=== PATIENT | female | born 1965 | race Caucasian/White ===

== ENCOUNTER 2016-07-28 16:01 | Emergency (ER) | payer MEDICARE, BC ==
[2016-07-28 16:34] VITALS: BP 134/87
--- NOTE | 2016-07-28 16:45 | EDM.PDOC ---
ED HPI GENERAL MEDICAL PROBLEM - General Chief Complaint: Chest Pain Stated Complaint: BROKE RIBS Time Seen by Provider: 07/28/16 16:36 Source of Information: Reports: Patient, Family, RN notes reviewed History Limitations: Reports: No limitations - History of Present Illness INITIAL COMMENTS - FREE TEXT/NARRATIVE: 50-year-old female presents to emergency department a complaint of rib pain she has a known history of COPD and osteoporosis, unfortunately she had a severe coughing fit today felt some pain on the left rib cage. Denies any shortness of breath beyond baseline fevers nausea vomiting - Related Data Allergies Allergy/AdvReac Type Severity Reaction Status Date / Time azithromycin [From Zithromax] Allergy Stomach Verified 07/28/16 16:21 Upset ciprofloxacin Allergy Shortness Verified 07/28/16 16:21 of Breath Penicillins Allergy Cannot Verified 07/28/16 16:21 Remember Sulfa (Sulfonamide Allergy Shortness Verified 07/28/16 16:21 Antibiotics) of Breath EGG WHITE Allergy Cannot Uncoded 07/28/16 16:21 Remember Home Meds: Home Meds Albuterol [Ventolin HFA] 07/28/16 [History] Fluticasone/Salmeterol [Advair Diskus 500-50] 07/28/16 [History] Ipratropium/Albuterol Sulfate [Iprat-Albut 0.5-3(2.5) mg/3 ml] 07/28/16 [ History] Umeclidinium [place] [Incruse Ellipta] 07/28/16 [History] predniSONE [Prednisone] 07/28/16 [History] Past Medical History Respiratory History: Reports: Asthma, COPD, Other (see below) Other Respiratory History: CARCOIDOSIS Musculoskeletal History: Reports: Fracture Social & Family History - Tobacco Use Smoking Status *Q: Current Some Day Smoker Years of Tobacco use: 30 Packs/Tins Daily: 0.5 ED ROS GENERAL - Review of Systems Review Of Systems: See Below Constitutional: Denies: fever, chills HEENT: Reports: No symptoms Respiratory: Reports: Shortness of Breath, Cough. Denies: Sputum Cardiovascular: Reports: Chest pain (chest wall pain) GI/Abdominal: Reports: No symptoms : Reports: no symptoms ED EXAM, GENERAL - Physical Exam Exam: See Below Exam Limited By: No limitations General Appearance: alert, WD/WN, no apparent distress Respiratory/Chest: no respiratory distress, lungs clear, normal breath sounds, no accessory muscle use, other (tenderness to palpation posterior aspect of the thoracic cage left side T2 -t10 region) Course - Vital Signs Last Recorded V/S: Last Vital Signs Temp 98.8 F 07/28/16 16:32 Pulse 103 H 07/28/16 16:32 Resp 14 07/28/16 16:32 BP 134/87 07/28/16 16:32 Pulse Ox 94 L 07/28/16 16:32 - Orders/Labs/Meds Orders: Active Orders 24 hr Category Date Time Status Chest 2V [CR] Urgent Exams 07/28/16 16:42 Taken Departure - Departure Time of Disposition: 17:25 Disposition: Home, Self-Care 01 Condition: good Clinical Impression: Chest wall pain Forms: ED Department Discharge Additional Instructions: use Tylenol No. 3 as deeper pain control, Please followup with your primary care provider in 3-5 days if not better, please call return to the emergency department with worsening of symptoms. - My Orders Last 24 Hours: My Active Orders 07/28/16 16:42 Chest 2V [CR] Urgent - Assessment/Plan Last 24 Hours: My Active Orders 07/28/16 16:42 Chest 2V [CR] Urgent Plan: Assessment Acuity = acute Site and laterality = chest wall pain Etiology = suspicious for rib injury Manifestations = none Location of injury = home Lab values = chest x-ray I did review films myself I cannot appreciate any acute process, the official read from radiology is pending Plan I did review x-ray results are returned for Tylenol #3 for pain control follow up with primary care 3-5 days if not better Patient was in agreement with the plan all questions were answered, they were instructed to return to the emergency department or call for worsening symptoms. This note was dictated using [employer] voice recognition software please call with any questions.
--- NOTE | 2016-07-30 08:52 | CR ---
Chest 2V HISTORY: rib pain left side COMPARISON: 07/28/2010 FINDINGS: Lungs appear clear and normally aerated. Cardiomediastinal silhouette is within normal limits. No va scular redistribution or pleural fluid can be seen. Bony structures and soft tissues are unremarkabl e. IMPRESSION: No acute chest abnormality identified.
== END 2016-07-28 17:48 | disposition home or self-care (01) ==
LOC: JP.ED 16:01
DX: R07.89 Other chest pain (principal); J45.909 Unspecified asthma, uncomplicated; J44.9 Chronic obstructive pulmonary disease, unspecified; F17.210 Nicotine dependence, cigarettes, uncomplicated; Z79.899 Other long term (current) drug therapy; Z88.0 Allergy status to penicillin; Z88.1 Allergy status to other antibiotic agents; Z88.2 Allergy status to sulfonamides; Z91.012 Allergy to eggs
CPT/HCPCS: 71020; 71020-26; 99283; 99284

== ENCOUNTER 2018-06-05 01:42 | Inpatient (IN) | payer MEDICARE, BC ==
[2018-06-05] MEDS ORDERED: Albuterol/Ipratropium 3.0-0.5 MG/3 ML Neb Soln NEB ONE (02:03)
[2018-06-05] MEDS ORDERED: methylPREDNISolone Sodium Succinate 125 MG/2 ML SDV IVPUSH ONE (02:03)
[2018-06-05] MEDS ORDERED: cefTRIAXone 1 GM in Sodium Chloride 0.9% 50 ML IV ONE (02:04)
--- NOTE | 2018-06-05 02:10 | EDM.PDOC ---
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 She felt an exacerbation starting several days ago, started doxycycline 2 days ago and a prednisone taper starting at 40 mg daily. Despite the medicine she doesn't feel she is improving. No fevers or chills. No productive cough. She is still smoking. Chest hurts from coughing Onset: Gradual Duration: Day(s): (Worsening for several days) Associated Symptoms: Reports: Chest Pain (History of fractured ribs), Cough, Shortness of Breath. Denies: Fever/Chills, Nausea/Vomiting breathing Pain Score (Numeric/FACES): 8 - Related Data Allergies Allergy/AdvReac Type Severity Reaction Status Date / Time azithromycin [From Zithromax] Allergy Stomach Verified 06/05/18 01:48 Upset ciprofloxacin Allergy Shortness Verified 06/05/18 01:48 of Breath Penicillins Allergy Cannot Verified 06/05/18 01:48 Remember Sulfa (Sulfonamide Allergy Shortness Verified 06/05/18 01:48 Antibiotics) of Breath EGG WHITE Allergy Cannot Uncoded 07/28/16 16:21 Remember Home Meds: Home Meds Albuterol [Ventolin HFA] 2 puff INH Q4H PRN 07/28/16 [History] Fluticasone/Salmeterol [Advair Diskus 500-50] 1 puff INH BID 07/28/16 [History] Umeclidinium [place] [Incruse Ellipta*] 1 puff INH DAILY 07/28/16 [History] predniSONE [Prednisone] 40 mg PO DAILY 07/28/16 [History] Albuterol [Proventil Neb Soln] 3 ml INH Q4H PRN 06/05/18 [History] Albuterol/Ipratropium [DuoNeb 3.0-0.5 MG/3 ML] 1 dose INH Q4H PRN 06/05/18 [ History] Aspirin [[place] Aspirin EC] 1 tab PO DAILY 06/05/18 [History] Cholecalciferol (Vitamin D3) [Vitamin D3] 1,000 units PO BID 06/05/18 [History] Doxycycline Monohydrate 1 tab PO BID 06/05/18 [History] Guaifenesin/Pseudoephedrne HCl [Mucinex D ER Tablet] 1 tab PO ASDIRECTED [History] Multivitamin [Daily Multiple Vitamin] 1 tab PO DAILY 06/05/18 [History] Ranitidine HCl [Zantac] 1 tab PO BID 06/05/18 [History] Past Medical History - Past Health History Medical/Surgical History: Denies Medical/Surgical History Respiratory History: Reports: Asthma, COPD, Sleep Apnea, Other (See Below) Other Respiratory History: CARCOIDOSIS Gastrointestinal History: Reports: GERD Genitourinary History: Reports: Renal Calculus [employer] AND [employer]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: Musculoskeletal History: Reports: Fracture, Osteoarthritis, Osteoporosis Neurological History: Reports: Neuropathy, Peripheral Psychiatric History: Reports: Depression - Past Surgical History HEENT Surgical History: Reports: Adenoidectomy, Myringotomy w Tube(s), Tonsillectomy GI Surgical History: Reports: Cholecystectomy Female Surgical History: Reports: Lithotripsy/ESWL Social & Family History - Tobacco Use Smoking Status *Q: Current Every Day Smoker Years of Tobacco use: 35 Packs/Tins Daily: 0.5 - Caffeine Use Caffeine Use: Reports: Soda - Recreational Drug Use Recreational Drug Use: No ED ROS GENERAL - Review of Systems Review Of Systems: See Below Constitutional: Denies: Fever, Chills HEENT: Denies: Rhinitis, Throat Pain Respiratory: Reports: Shortness of Breath, Cough. Denies: Sputum Cardiovascular: Reports: Chest Pain. Denies: Palpitations GI/Abdominal: Denies: Abdominal Pain, Nausea, Vomiting : Reports: No Symptoms Skin: Reports: Other (Hyperemia, telangectasias of the face likely from chronic steroid use) Neurological: Denies: Headache Psychiatric: Reports: Anxiety ED EXAM, GENERAL - Physical Exam Exam: See Below Exam Limited By: No Limitations General Appearance: Alert, Mild Distress Head: Atraumatic Respiratory/Chest: Respiratory Distress, Decreased Breath Sounds, Wheezing Cardiovascular: Regular Rate, Rhythm, Tachycardia GI/Abdominal: Non-Tender Neurological: Alert, Oriented Psychiatric: Anxious Course - Vital Signs Last Recorded V/S: Last Vital Signs Temp 99.0 F 06/05/18 03:37 Pulse 122 H 06/05/18 03:37 Resp 22 H 06/05/18 03:37 BP 122/88 06/05/18 03:37 Pulse Ox 94 L 06/05/18 04:05 - Orders/Labs/Meds Orders: Active Orders 24 hr Category Date Time Status RT Aerosol Therapy [RC] ASDIRECTED Care 06/05/18 02:04 Active Medication Orders Acetaminophen (Tylenol) 650 mg PO Q4H PRN PRN Reason: Pain (Mild 1-3)/fever Last Admin: 06/05/18 04:04 Dose: 650 mg Albuterol (Proventil Neb Soln) 2.5 mg NEB Q1H PRN PRN Reason: Shortness Of Breath/wheezing Last Admin: 06/05/18 04:53 Dose: 2.5 mg Admin: 06/05/18 03:43 Dose: 2.5 mg Albuterol/Ipratropium (Duoneb 3.0-0.5 Mg/3 Ml) 3 ml INH Q4H PRN PRN Reason: Shortness of Breath Last Admin: 06/05/18 05:57 Dose: 3 ml Aspirin (Halfprin) 81 mg PO DAILY LARRY Bisacodyl (Dulcolax) 5 mg PO DAILY PRN PRN Reason: Constipation Diphenhydramine HCl (Benadryl) 25 mg PO BEDTIME PRN PRN Reason: Insomnia Last Admin: 06/05/18 04:04 Dose: 25 mg Docusate Sodium (Colace) 100 mg PO BID PRN PRN Reason: Constipation Enoxaparin Sodium (Lovenox) 40 mg SUBCUT DAILY [facility], [facility]1983 Guaifenesin/Codeine Phosphate (Robitussin Ac) 10 ml PO Q4H PRN PRN Reason: Cough Ceftriaxone Sodium 1 gm/ (Sodium Chloride) 50 mls @ 100 mls/hr IV Q24H LARRY Sodium Chloride (Normal Saline) 1,000 mls @ 125 mls/hr IV ASDIRECTED [facility], [facility]–1983 Last Admin: 06/05/18 03:42 Dose: 125 mls/hr Insulin Human Lispro (Humalog) 0 unit SUBCUT QIDACANDBED FORMERLY [facility], 1928–1983; Protocol Lorazepam (Ativan) 1 mg IV Q6H PRN PRN Reason: Nausea/Vomiting Last Admin: 06/05/18 06:03 Dose: 1 mg Melatonin (Melatonin) 6 mg PO BEDTIME PRN PRN Reason: Insomnia Methylprednisolone Sodium Succinate (Solu-Medrol) 62.5 mg IVPUSH Q6H LARRY Nicotine (Habitrol) 14 mg TRDERM DAILY LARRY Non-Formulary Medication (Umeclidinium [place] [Incruse Ellipta*]) 1 puff INH DAILY LARRY Ondansetron HCl (Zofran Odt) 4 mg PO Q6H PRN PRN Reason: Nausea able to take PO Oxycodone HCl (Oxycodone) 5 mg PO Q4H PRN PRN Reason: Pain (moderate 4-6) Pantoprazole Sodium (Protonix Iv) 40 mg IVPUSH DAILY LARRY Temazepam (Restoril) 15 mg PO BEDTIME PRN PRN Reason: Sleep Labs: Laboratory Tests 06/05/18 06/05/18 06/05/18 Range/Units 02:10 02:25 02:25 WBC 15.2 H (4.5-11.0) K/uL RBC 4.72 (3.30-5.50) M/uL Hgb 14.9 (12.0-15.0) g/dL Hct 45.7 (36.0-48.0) % MCV 97 (80-98) fL MCH 32 H (27-31) pg MCHC 33 (32-36) % Plt Count 382 (150-400) K/uL Neut % (Auto) 76 H (36-66) % Lymph % (Auto) 11 L (24-44) % [place] % (Auto) 13 H (2-6) % Eos % (Auto) 0 L (2-4) % Baso % (Auto) 0 (0-1) % Puncture Site L radial ABG pH 7.427 (7.350-7.450) ABG pCO2 34.5 L (35.0-42.0) mmHg ABG pO2 68.9 L (75.0-100.0) mmHg ABG HCO3 22.3 (22.0-26.0) mmol/L ABG Total CO2 19.3 L (21.0-25.0) mmol/L ABG O2 Saturation 92.9 L (95.0-98.0) % ABG O2 Content 19.3 (15.0-23.0) %vol ABG Base Excess -0.9 mm/L ABG Hemoglobin 15.0 (12.0-16.0) g/dL ABG Oxyhemoglobin 91.7 % ABG Carboxyhemoglobin 0.5 (0.0-1.6) % ABG Methemoglobin 0.8 % Harpreet Test Ok O2 Delivery Device Room air Oxygen Flow Rate L Sodium 141 (140-148) mmol/L Potassium 3.6 (3.6-5.2) mmol/L Chloride 102 (100-108) mmol/L Carbon Dioxide 25 (21-32) mmol/L Anion Gap 14.0 (5.0-14.0) mmol/L BUN 13 (7-18) mg/dL Creatinine 0.8 (0.6-1.0) mg/dL Est Cr Clr Drug Dosing 72.34 mL/min Estimated GFR (MDRD) > 60 (>60) Glucose 150 H (74-106) mg/dL Calcium 9.4 (8.5-10.1) mg/dL Meds: Medications Generic Name Dose Route Start Last Admin Trade Name Freq PRN Reason Stop Dose Admin Acetaminophen 650 mg 06/05/18 03:27 06/05/18 04:04 Tylenol PO 650 mg Q4H PRN Administration Pain (Mild 1-3)/fever Albuterol 2.5 mg 06/05/18 03:27 06/05/18 04:53 Proventil Neb Soln NEB 2.5 mg Q1H PRN Administration Shortness Of Breath/wheezing Albuterol/Ipratropium 3 ml 06/05/18 03:27 06/05/18 05:57 Duoneb 3.0-0.5 Mg/3 Ml INH 3 ml Q4H PRN Administration Shortness of Breath Aspirin 81 mg 06/05/18 09:00 Halfprin PO DAILY LARRY Bisacodyl 5 mg 06/05/18 03:27 Dulcolax PO DAILY PRN Constipation Diphenhydramine HCl 25 mg 06/05/18 03:27 06/05/18 04:04 Benadryl PO 25 mg BEDTIME PRN Administration Insomnia Docusate Sodium 100 mg 06/05/18 03:27 Colace PO BID PRN Constipation Enoxaparin Sodium 40 mg 06/05/18 09:00 Lovenox SUBCUT DAILY LARRY Guaifenesin/Codeine Phosphate 10 ml 06/05/18 03:27 Robitussin Ac PO Q4H PRN Cough Ceftriaxone Sodium 1 gm/ 50 mls @ 100 mls/hr 06/05/18 21:00 Sodium Chloride IV Q24H LARRY Sodium Chloride 1,000 mls @ 125 mls/hr 06/05/18 03:27 06/05/18 03:42 Normal Saline IV 125 mls/hr ASDIRECTED LARRY Administration Insulin Human Lispro 0 unit 06/05/18 07:00 Humalog SUBCUT QIDACANDBED [facility], 1928–1983 Protocol Lorazepam 1 mg 06/05/18 03:27 06/05/18 06:03 Ativan IV 1 mg Q6H PRN Administration Nausea/Vomiting Melatonin 6 mg 06/05/18 03:27 Melatonin PO BEDTIME PRN Insomnia Methylprednisolone Sodium Succinate 62.5 mg 06/05/18 08:00 Solu-Medrol IVPUSH Q6H [facility] Nicotine 14 mg 06/05/18 09:00 Habitrol TRDERM DAILY [facility], [facility]1983 Non-Formulary Medication 1 puff 06/05/18 09:00 Umeclidinium [place] [Incruse Ellipta*] INH DAILY [facility]1983 Ondansetron HCl 4 mg 06/05/18 03:27 Zofran Odt PO Q6H PRN Nausea able to take PO Oxycodone HCl 5 mg 06/05/18 03:27 Oxycodone PO Q4H PRN Pain (moderate 4-6) Pantoprazole Sodium 40 mg 06/05/18 09:00 Protonix Iv IVPUSH DAILY [facility]1983 Temazepam 15 mg 06/05/18 03:27 Restoril PO BEDTIME PRN Sleep Discontinued Medications Generic Name Dose Route Start Last Admin Trade Name Freq PRN Reason Stop Dose Admin Albuterol 2.5 mg 06/05/18 02:41 06/05/18 02:53 Proventil Neb Soln NEB 06/05/18 02:42 2.5 mg ONETIME ONE Administration Albuterol/Ipratropium 3 ml 06/05/18 02:03 06/05/18 02:14 Duoneb 3.0-0.5 Mg/3 Ml NEB 06/05/18 02:04 3 ml ONETIME ONE Administration Ceftriaxone Sodium 1 gm/ 50 mls @ 100 mls/hr 06/05/18 02:04 06/05/18 02:23 Sodium Chloride IV 06/05/18 02:33 100 mls/hr ONETIME ONE Administration Methylprednisolone Sodium Succinate 125 mg 06/05/18 02:03 06/05/18 02:19 Solu-Medrol IVPUSH 06/05/18 02:04 125 mg ONETIME ONE Administration - Re-Assessments/Exams Free Text/Narrative Re-Assessment/Exam: 06/05/18 02:09 An IV was started, patient will be given 125 mg of IV Solu-Medrol, 1 g of IV Rocephin and also a DuoNeb. Portable chest x-ray will be obtained. CBC and BMP obtained as well as ABGs. 06/05/18 02:13 Chest x-ray showed hyperinflation but no infiltrate. Patient had slight improvement objectively after the DuoNeb, her O2 sats was still hovering between 89 and 91 so she was given 2 L of nasal cannula O2. Danielle Oconnor of the hospitalist service was asked to see the patient for admission. Departure - Departure Time of Disposition: 02:49 Disposition: Admitted As Inpatient 64 Condition: Fair Clinical Impression: COPD exacerbation, Hypoxemia - Discharge Information - My Orders Last 24 Hours: My Active Orders 06/05/18 02:04 RT Aerosol Therapy [RC] ASDIRECTED - Assessment/Plan Last 24 Hours: My Active Orders 06/05/18 02:04 RT Aerosol Therapy [RC] ASDIRECTED
--- NOTE | 2018-06-05 02:35 | CRLCR ---
HISTORY: Shortness of breath COMPARISON: 07/28/2016 FINDINGS: A portable erect AP view of the chest was obtained at 0204 hours. The lungs remain clear. No focal or diffuse infiltrates are present. The heart remains normal in size. The mediastinum is normal in appearance. Again seen are old, well-healed fractures of the posterior-lateral left 6th through 8th ribs. IMPRESSION: No active disease seen in the chest. Dictated by Parvez Crane MD @ Jun 05 2018 2:32AM Signed by Dr. Parvez Crane @ Jun 05 2018 2:34AM
[2018-06-05] MEDS ORDERED: Albuterol 0.083% 2.5 MG/3 ML Neb Soln NEB ONE (02:41)
--- NOTE | 2018-06-05 03:14 | PCM.HP ---
H&P History of Present Illness - General Date of Service: 06/05/18 Admit Problem/Dx: Admission Diagnosis/Problem Admission Diagnosis/Problem COPD, Moderate chronic obstructive pulmonary disease Source of Information: Patient, Family (, Alfa) History Limitations: Reports: No Limitations - History of Present Illness Initial Comments - Free Text/Narative: 52-year-old female with chronic obstructive lung disease, has a standing order from her patient access associate to increase prednisone and doxycycline for COPD flare ups. She felt an exacerbation starting several days ago, started doxycycline 2 days ago and a prednisone taper starting at 40 mg daily. Despite the medicine she doesn't feel she is improving. No fevers or chills. No productive cough. She is still smoking. Chest hurts from coughing In ER 02:09 An IV was started, patient will be given 125 mg of IV Solu-Medrol, 1 g of IV Rocephin and also a DuoNeb. Portable chest x-ray will be obtained. CBC and BMP obtained as well as ABGs. 06/05/18 02:13 Chest x-ray showed hyperinflation but no infiltrate. Patient had slight improvement objectively after the DuoNeb, her O2 sats was still hovering between 89 and 91 so she was given 2 L of nasal cannula O2. Onset of Symptoms: Reports: Gradual Symptom Onset Date: 06/01/18 Duration of Symptoms: Reports: Chronic, Getting Worse Location: Reports: Chest (chronic COPD, with worsen shortness of breath), Generalized Quality: Reports: Same as Previous Episode Improves with: Reports: Medication Worsens with: Reports: None Context: Reports: Sick Contact (Grandson and with respiratory illness) Associated Symptoms: Reports: Chest Pain, Cough, Fever/Chills, Loss of Appetite , Nausea/Vomiting, Shortness of Breath breathing Pain Score (Numeric/FACES): 8 - Related Data Allergies/Adverse Reactions: Allergies Allergy/AdvReac Type Severity Reaction Status Date / Time azithromycin [From Zithromax] Allergy Stomach Verified 06/05/18 01:48 Upset ciprofloxacin Allergy Shortness Verified 06/05/18 01:48 of Breath Penicillins Allergy Cannot Verified 06/05/18 01:48 Remember Sulfa (Sulfonamide Allergy Shortness Verified 06/05/18 01:48 Antibiotics) of Breath EGG WHITE Allergy Cannot Uncoded 07/28/16 16:21 Remember Home Medications: Home Meds Albuterol [Ventolin HFA] 2 puff INH Q4H PRN 07/28/16 [History] Fluticasone/Salmeterol [Advair Diskus 500-50] 1 puff INH BID 07/28/16 [History] Umeclidinium [place] [Incruse Ellipta*] 1 puff INH DAILY 07/28/16 [History] predniSONE [Prednisone] 40 mg PO DAILY 07/28/16 [History] Albuterol [Proventil Neb Soln] 3 ml INH Q4H PRN 06/05/18 [History] Albuterol/Ipratropium [DuoNeb 3.0-0.5 MG/3 ML] 1 dose INH Q4H PRN 06/05/18 [ History] Aspirin [[place]orden Aspirin EC] 1 tab PO DAILY 06/05/18 [History] Cholecalciferol (Vitamin D3) [Vitamin D3] 1,000 units PO BID 06/05/18 [History] Doxycycline Monohydrate 1 tab PO BID 06/05/18 [History] Guaifenesin/Pseudoephedrne HCl [Mucinex D ER Tablet] 1 tab PO ASDIRECTED [History] Multivitamin [Daily Multiple Vitamin] 1 tab PO DAILY 06/05/18 [History] Ranitidine HCl [Zantac] 1 tab PO BID 06/05/18 [History] Past Medical History - Past Health History Medical/Surgical History: Denies Medical/Surgical History Respiratory History: Reports: Asthma, COPD, Sleep Apnea, Other (See Below) Other Respiratory History: CARCOIDOSIS Gastrointestinal History: Reports: GERD Genitourinary History: Reports: Renal Calculus [employer]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: Musculoskeletal History: Reports: Fracture, Osteoarthritis, Osteoporosis Neurological History: Reports: Neuropathy, Peripheral Psychiatric History: Reports: Depression - Past Surgical History HEENT Surgical History: Reports: Adenoidectomy, Myringotomy w Tube(s), Tonsillectomy GI Surgical History: Reports: Cholecystectomy Female Surgical History: Reports: Lithotripsy/ESWL Social & Family History - Tobacco Use Smoking Status *Q: Current Every Day Smoker Years of Tobacco use: 35 Packs/Tins Daily: 0.5 - Caffeine Use Caffeine Use: Reports: Soda - Recreational Drug Use Recreational Drug Use: No H&P Review of Systems - Review of Systems: Review Of Systems: See Below General: Reports: Fever, Chills, Malaise, Fatigue, Decreased Appetite HEENT: Reports: No Symptoms Pulmonary: Reports: Shortness of Breath, Wheezing, Pleuritic Chest Pain, Cough, Sputum Cardiovascular: Reports: Dyspnea on Exertion, Edema (lower leg) Gastrointestinal: Reports: Distension (chronic), Nausea Genitourinary: Reports: No Symptoms, Incontinence ("leaky bladder") Musculoskeletal: Reports: Other (painful hands, feet, legs.) Skin: Reports: Dryness Psychiatric: Reports: No Symptoms Neurological: Reports: No Symptoms Hematologic/Lymphatic: Reports: No Symptoms Immunologic: Reports: Anaphylaxis (multi medication allergry) Exam - Exam Exam: See Below - Vital Signs Vital Signs: Last Vital Signs Temp 36.6 C 06/05/18 01:48 Pulse 130 H 06/05/18 01:48 Resp 24 H 06/05/18 02:26 BP 158/88 H 06/05/18 02:26 Pulse Ox 93 L 06/05/18 02:26 Weight: 68.039 kg - Exam Quality Assessment: Supplemental Oxygen, DVT Prophylaxis General: Alert, Oriented, Cooperative, Mild Distress HEENT: PERRLA, Hearing Intact, Mucosa Moist & [place], Nares Patent, Normal Nasal Septum, Posterior Pharynx Clear, Conjunctiva Clear, EOMI, EACs Clear, TMs Clear Neck: Supple, Trachea Midline Lungs: Decreased Breath Sounds (bilateral), Crackles (bilateral), Wheezing ( bilateral) Cardiovascular: Regular Rate, Regular Rhythm GI/Abdominal Exam: Normal Bowel Sounds, Distended (chronic per patient) (Female) Exam: Deferred Rectal (Female) Exam: Deferred Back Exam: Normal Inspection, Full Range of Motion Extremities: Normal Range of Motion Skin: Warm, Dry, Intact Neurological: Reflexes Equal Bilateral, Strength Equal Bilateral, Normal Speech , Normal Tone Neuro Extensive - Mental Status: Alert, Oriented x3, Normal Mood/Affect, Normal Cognition Psychiatric: Alert, Normal Affect, Normal Mood - Patient Data Lab Results Last 24 hrs: Laboratory Results - last 24 hr 06/05/18 06/05/18 06/05/18 Range/Units 02:10 02:25 02:25 WBC 15.2 H (4.5-11.0) K/uL RBC 4.72 (3.30-5.50) M/uL Hgb 14.9 (12.0-15.0) g/dL Hct 45.7 (36.0-48.0) % MCV 97 (80-98) fL MCH 32 H (27-31) pg MCHC 33 (32-36) % Plt Count 382 (150-400) K/uL Neut % (Auto) 76 H (36-66) % Lymph % (Auto) 11 L (24-44) % [place] % (Auto) 13 H (2-6) % Eos % (Auto) 0 L (2-4) % Baso % (Auto) 0 (0-1) % Puncture Site L radial ABG pH 7.427 (7.350-7.450) ABG pCO2 34.5 L (35.0-42.0) mmHg ABG pO2 68.9 L (75.0-100.0) mmHg ABG HCO3 22.3 (22.0-26.0) mmol/L ABG Total CO2 19.3 L (21.0-25.0) mmol/L ABG O2 Saturation 92.9 L (95.0-98.0) % ABG O2 Content 19.3 (15.0-23.0) %vol ABG Base Excess -0.9 mm/L ABG Hemoglobin 15.0 (12.0-16.0) g/dL ABG Oxyhemoglobin 91.7 % ABG Carboxyhemoglobin 0.5 (0.0-1.6) % ABG Methemoglobin 0.8 % Harpreet Test Ok O2 Delivery Device Room air Oxygen Flow Rate L Sodium 141 (140-148) mmol/L Potassium 3.6 (3.6-5.2) mmol/L Chloride 102 (100-108) mmol/L Carbon Dioxide 25 (21-32) mmol/L Anion Gap 14.0 (5.0-14.0) mmol/L BUN 13 (7-18) mg/dL Creatinine 0.8 (0.6-1.0) mg/dL Est Cr Clr Drug Dosing 72.34 mL/min Estimated GFR (MDRD) > 60 (>60) Glucose 150 H (74-106) mg/dL Calcium 9.4 (8.5-10.1) mg/dL Result Diagrams: 06/05/18 02:25 06/05/18 02:25 - Problem List (1) COPD exacerbation SNOMED Code(s): 863515559 ICD Code: J44.1 - CHRONIC OBSTRUCTIVE PULMONARY DISEASE W (ACUTE) EXACERBATION Status: Acute Priority: High Current Visit: Yes (2) Tobacco use SNOMED Code(s): 594113302 ICD Code: Z72.0 - TOBACCO USE Status: Acute Priority: High Current Visit: Yes Problem List Initiated/Reviewed/Updated: Yes Orders Last 24hrs: Active Orders 24 hr Category Date Time Status Patient Status Manage Transfer [TRANSFER] Routine ADT 06/05/18 02:35 Active RT Aerosol Therapy [RC] ASDIRECTED Care 06/05/18 02:04 Active RT Aerosol Therapy [RC] ASDIRECTED Care 06/05/18 02:41 Active Resuscitation Status Routine Resus Stat 06/05/18 02:55 Ordered Assessment/Plan Comment:: ASSESSMENT / PLAN -This is 52-year-old present to ER with worsen of shortness of breath this evening. but has been sick with respiratory illness since Saturday. and Grandson are sick with respiratory illness. She has standing orders from Dr. Reyna, Pulmonology, [place], [place]. to start Doxy 100mg po bid and Prednisone 40mg with worsen shortness of breath, has been taking medications for 2 days with out improvement. In emergency room she was noted to have shortness of breath, oxygen saturation at 89% to 91% on room air, she was started on oxygen and given nebulizer, oxygen saturations improved to 90%. labs, chest x-ray, EKG, no infiltrates Medications : albuterol neb, duo neb, Rocephin 1 gram IV, Solu-Medrol 125 mg IV COPD exacerbation -Admit to [address] [place] [address] for further monitoring -IV Fluids for rehydration NS at 125 mL per hour -IV Antibiotic: Rocephin 1 g IV every 24 hours -IV Solu-Medrol 125 mg given in ER, order 6.25 mg IV every 6 hrs -albuterol nebulizer every 1 hours as needed for wheezing and cough -Duo neb ; schedule nebulize every 4 hours -oxygen per nasal cannula to keep oxygen sats greater than 92% -Advise to notify nurses of any chest pain or other symptoms Tobacco Use -Nicotine patch 14 mcg daily Maintenance issues -Orders home meds: home meds order -Nutrition: regular diet -Mar catheter not indicated at this time -DVT: Lovenox 40 mg subcut -PPI: IV Protonix 40mg daily CODE STATUS: DNR/DNI, will use Bipap Admission status: Admit to [address] [place] [address] Admission justification. This patient will be admitted for inpatient services and is medically appropriate meeting medical necessity for inpatient admission as outlined in my documentation. I reasonably expect the patient will require inpatient services that span. Time over 2 midnights. I reasonably expect this patient to be discharged or transferred within 96 hours after admission to the critical [facility]. Disposition: home Primary care provider: Dr. Mullen Hospitalist: Dr. Garnett
[2018-06-05] MEDS ORDERED: Temazepam 15 MG Cap PO PRN (03:27)
[2018-06-05] MEDS ORDERED: LORazepam 2 MG/ML SDV IV PRN (03:27)
[2018-06-05] MEDS ORDERED: Ondansetron 4 MG Tab.DIS PO PRN (03:27)
[2018-06-05] MEDS ORDERED: Bisacodyl 5 MG Tab PO PRN (03:27)
[2018-06-05] MEDS ORDERED: oxyCODONE 5 MG Tab PO PRN (03:27)
[2018-06-05] MEDS ORDERED: Melatonin 3 MG Tab PO PRN (03:27)
[2018-06-05] MEDS: Sodium Chloride 0.9% 1,000 ML IV SCH ×3 (03:42→19:36)
[2018-06-05] MEDS: Albuterol 0.083% 2.5 MG/3 ML Neb Soln NEB PRN ×3 (03:43→16:23)
[2018-06-05] MEDS: diphenhydrAMINE 25 MG Cap PO PRN ×2 (04:04→21:32)
[2018-06-05] MEDS: Acetaminophen 325 MG Tab PO PRN ×2 (04:04→17:04)
[2018-06-05] MEDS: Albuterol/Ipratropium 3.0-0.5 MG/3 ML Neb Soln INH PRN ×4 (05:57→14:18)
[2018-06-05] MEDS: Insulin Lispro 100 Unit/ML 3 ML KwikPen SUBCUT SCH ×4 (08:04→21:03)
[2018-06-05] MEDS: methylPREDNISolone Sodium Succinate 125 MG/2 ML SDV IVPUSH SCH ×3 (08:15→20:58)
[2018-06-05] MEDS: Pantoprazole 40 MG Tab.CR PO SCH (08:16)
[2018-06-05] MEDS: Aspirin 81 MG Tab.EC PO SCH (08:16)
[2018-06-05] MEDS: Glycopyrrolate 15.6 MCG Cap.W.Dev Kit of 6 IH SCH ×2 (08:17→21:03)
[2018-06-05] MEDS: Nicotine 14 MG/24 Hr Patch TRDERM SCH (08:17)
[2018-06-05] MEDS: Enoxaparin 40 MG/0.4 ML Syringe SUBCUT SCH (08:17)
[2018-06-05] MEDS ORDERED: Non-Formulary Medication 1 Each (Umeclidinium Bromide [Incruse Ellipta*] 1 PUFF) INH SCH (09:00)
[2018-06-05] MEDS ORDERED: Pantoprazole 40 MG Vial IVPUSH SCH (09:00)
[2018-06-05] MEDS: Codeine/guaiFENesin 100mg-10 MG/5 ML Syrup 10 ML Cup PO PRN (09:20)
[2018-06-05] MEDS: LORazepam 2 MG/ML SDV IV PRN ×3 (09:49→18:25)
[2018-06-05] MEDS ORDERED: Nicotine Polacrilex 2 MG Gum CHEW PRN (15:30)
--- NOTE | 2018-06-05 15:39 | PCM.PN ---
- General Info Date of Service: 06/05/18 Subjective Update: Ms. Ybarra is a 52-year-old woman who was admitted through the emergency department early this morning with acute hypoxia secondary to COPD exacerbation and underlying bronchitis. She developed upper respiratory tract infection over the past few days and became progressively more short of breath. Found to be hypoxic on initial evaluation. Chest x-ray shows no obvious infiltrate, white blood cell count was moderately elevated. Thus far she has experienced only modest improvement in symptoms, with persistent shortness of breath and cough. Functional Status: Reports: Tolerating Diet, Urinating - Review of Systems General: Reports: Weakness. Denies: Fever, Chills Pulmonary: Reports: Shortness of Breath, Cough, Sputum, Wheezing. Denies: Pleuritic Chest Pain, Hemoptysis Cardiovascular: Reports: Dyspnea on Exertion. Denies: Chest Pain, Palpitations , Orthopnea, PND, Edema, Lightheadedness Gastrointestinal: Reports: No Symptoms - Patient Data Vitals - Most Recent: Last Vital Signs Temp 98.3 F 06/05/18 15:00 Pulse 123 H 06/05/18 15:00 Resp 24 H 06/05/18 15:00 BP 145/67 H 06/05/18 15:00 Pulse Ox 90 L 06/05/18 15:00 Weight - Most Recent: 173 lb 6.403 oz I&O - Last 24 Hours: Intake & Output 06/05/18 06/05/18 06/05/18 06:59 14:59 22:59 Intake Total 282 Output Total 1000 Balance 282 -1000 Lab Results Last 24 Hours: Laboratory Results - last 24 hr 06/05/18 06/05/18 06/05/18 Range/Units 02:10 02:25 02:25 WBC 15.2 H (4.5-11.0) K/uL RBC 4.72 (3.30-5.50) M/uL Hgb 14.9 (12.0-15.0) g/dL Hct 45.7 (36.0-48.0) % MCV 97 (80-98) fL MCH 32 H (27-31) pg MCHC 33 (32-36) % Plt Count 382 (150-400) K/uL Neut % (Auto) 76 H (36-66) % Lymph % (Auto) 11 L (24-44) % [place] % (Auto) 13 H (2-6) % Eos % (Auto) 0 L (2-4) % Baso % (Auto) 0 (0-1) % Puncture Site L radial ABG pH 7.427 (7.350-7.450) ABG pCO2 34.5 L (35.0-42.0) mmHg ABG pO2 68.9 L (75.0-100.0) mmHg ABG HCO3 22.3 (22.0-26.0) mmol/L ABG Total CO2 19.3 L (21.0-25.0) mmol/L ABG O2 Saturation 92.9 L (95.0-98.0) % ABG O2 Content 19.3 (15.0-23.0) %vol ABG Base Excess -0.9 mm/L ABG Hemoglobin 15.0 (12.0-16.0) g/dL ABG Oxyhemoglobin 91.7 % ABG Carboxyhemoglobin 0.5 (0.0-1.6) % ABG Methemoglobin 0.8 % Harpreet Test Ok O2 Delivery Device Room air Oxygen Flow Rate L Sodium 141 (140-148) mmol/L Potassium 3.6 (3.6-5.2) mmol/L Chloride 102 (100-108) mmol/L Carbon Dioxide 25 (21-32) mmol/L Anion Gap 14.0 (5.0-14.0) mmol/L BUN 13 (7-18) mg/dL Creatinine 0.8 (0.6-1.0) mg/dL Est Cr Clr Drug Dosing 72.34 mL/min Estimated GFR (MDRD) > 60 (>60) Glucose 150 H (74-106) mg/dL Calcium 9.4 (8.5-10.1) mg/dL 06/05/18 Range/Units 09:44 WBC (4.5-11.0) K/uL RBC (3.30-5.50) M/uL Hgb (12.0-15.0) g/dL Hct (36.0-48.0) % MCV (80-98) fL MCH (27-31) pg MCHC (32-36) % Plt Count (150-400) K/uL Neut % (Auto) (36-66) % Lymph % (Auto) (24-44) % [place] % (Auto) (2-6) % Eos % (Auto) (2-4) % Baso % (Auto) (0-1) % Puncture Site Lt radial ABG pH 7.362 (7.350-7.450) ABG pCO2 34.1 L (35.0-42.0) mmHg ABG pO2 79.4 (75.0-100.0) mmHg ABG HCO3 18.9 L (22.0-26.0) mmol/L ABG Total CO2 16.8 L (21.0-25.0) mmol/L ABG O2 Saturation 94.4 L (95.0-98.0) % ABG O2 Content 18.3 (15.0-23.0) %vol ABG Base Excess -5.2 mm/L ABG Hemoglobin 13.9 (12.0-16.0) g/dL ABG Oxyhemoglobin 93.4 % ABG Carboxyhemoglobin 0.3 (0.0-1.6) % ABG Methemoglobin 0.8 % Harpreet Test Passed O2 Delivery Device Nasal cannula Oxygen Flow Rate 2 L Sodium (140-148) mmol/L Potassium (3.6-5.2) mmol/L Chloride (100-108) mmol/L Carbon Dioxide (21-32) mmol/L Anion Gap (5.0-14.0) mmol/L BUN (7-18) mg/dL Creatinine (0.6-1.0) mg/dL Est Cr Clr Drug Dosing mL/min Estimated GFR (MDRD) (>60) Glucose (74-106) mg/dL Calcium (8.5-10.1) mg/dL Med Orders - Current: Current Medications Acetaminophen (Tylenol) 650 mg PO Q4H PRN PRN Reason: Pain (Mild 1-3)/fever Last Admin: 06/05/18 04:04 Dose: 650 mg Acetylcysteine (Mucomyst 20%) 200 mg NEB TIDRT LARRY Albuterol (Proventil Neb Soln) 2.5 mg NEB Q1H PRN PRN Reason: Shortness Of Breath/wheezing Last Admin: 06/05/18 04:53 Dose: 2.5 mg Albuterol/Ipratropium (Duoneb 3.0-0.5 Mg/3 Ml) 3 ml INH Q4H PRN PRN Reason: Shortness of Breath Last Admin: 06/05/18 14:18 Dose: 3 ml Aspirin (Halfprin) 81 mg PO DAILY [facility] Last Admin: 06/05/18 08:16 Dose: 81 mg Bisacodyl (Dulcolax) 5 mg PO DAILY PRN PRN Reason: Constipation Diphenhydramine HCl (Benadryl) 25 mg PO BEDTIME PRN PRN Reason: Insomnia Last Admin: 06/05/18 04:04 Dose: 25 mg Docusate Sodium (Colace) 100 mg PO BID PRN PRN Reason: Constipation Enoxaparin Sodium (Lovenox) 40 mg SUBCUT DAILY [facility] Last Admin: 06/05/18 08:17 Dose: 40 mg Glycopyrrolate (Seebri Neohaler) 15.6 mcg IH BIDRT [facility] Last Admin: 06/05/18 08:17 Dose: 15.6 mcg Guaifenesin/Codeine Phosphate (Robitussin Ac) 10 ml PO Q4H PRN PRN Reason: Cough Last Admin: 06/05/18 09:20 Dose: 10 ml Ceftriaxone Sodium 1 gm/ (Sodium Chloride) 50 mls @ 100 mls/hr IV Q24H [facility] Sodium Chloride (Normal Saline) 1,000 mls @ 125 mls/hr IV ASDIRECTED [facility] Last Admin: 06/05/18 11:38 Dose: 125 mls/hr Insulin Human Lispro (Humalog) 0 unit SUBCUT QIDACANDBED [facility]; Protocol Last Admin: 06/05/18 12:09 Dose: 1 units Lorazepam (Ativan) 0.5 mg IV Q2H PRN PRN Reason: Anxiety Last Admin: 06/05/18 15:10 Dose: 0.5 mg Melatonin (Melatonin) 6 mg PO BEDTIME PRN PRN Reason: Insomnia Methylprednisolone Sodium Succinate (Solu-Medrol) 62.5 mg IVPUSH Q6H [facility] Last Admin: 06/05/18 14:30 Dose: 62.5 mg Nicotine (Habitrol) 14 mg TRDERM DAILY [facility] Last Admin: 06/05/18 08:17 Dose: 14 mg Nicotine Polacrilex (Nicorelief) 2 mg CHEW Q1H PRN PRN Reason: Other Ondansetron HCl (Zofran Odt) 4 mg PO Q6H PRN PRN Reason: Nausea able to take PO Oxycodone HCl (Oxycodone) 5 mg PO Q4H PRN PRN Reason: Pain (moderate 4-6) Pantoprazole Sodium (Protonix) 40 mg PO ACBREAKFAST [facility] Last Admin: 06/05/18 08:16 Dose: 40 mg Temazepam (Restoril) 15 mg PO BEDTIME PRN PRN Reason: Sleep Discontinued Medications Albuterol (Proventil Neb Soln) 2.5 mg NEB ONETIME ONE Stop: 06/05/18 02:42 Last Admin: 06/05/18 02:53 Dose: 2.5 mg Albuterol/Ipratropium (Duoneb 3.0-0.5 Mg/3 Ml) 3 ml NEB ONETIME ONE Stop: 06/05/18 02:04 Last Admin: 06/05/18 02:14 Dose: 3 ml Ceftriaxone Sodium 1 gm/ (Sodium Chloride) 50 mls @ 100 mls/hr IV ONETIME ONE Stop: 06/05/18 02:33 Last Admin: 06/05/18 02:23 Dose: 100 mls/hr Lorazepam (Ativan) 1 mg IV Q6H PRN PRN Reason: Nausea/Vomiting Last Admin: 06/05/18 06:03 Dose: 1 mg Methylprednisolone Sodium Succinate (Solu-Medrol) 125 mg IVPUSH ONETIME ONE Stop: 06/05/18 02:04 Last Admin: 06/05/18 02:19 Dose: 125 mg Pantoprazole Sodium (Protonix Iv) 40 mg IVPUSH DAILY LARRY - Exam Quality Assessment: Supplemental Oxygen, DVT Prophylaxis General: Alert, Oriented, Cooperative, Moderate Distress Lungs: Decreased Breath Sounds, Rhonchi, Wheezing. No: Crackles, Rales Cardiovascular: Regular Rhythm, No Murmurs, Tachycardia GI/Abdominal Exam: Soft, Non-Tender, No Organomegaly, No Distention Extremities: Non-Tender, No Pedal Edema - Problem List Review Problem List Initiated/Reviewed/Updated: Yes - My Orders Last 24 Hours: My Active Orders 06/05/18 09:33 LORazepam [Ativan] 0.5 mg IV Q2H PRN 06/05/18 15:30 RT Aerosol Therapy [RC] ASDIRECTED Acetylcysteine [Mucomyst 20%] 200 mg NEB TIDRT Nicotine Polacrilex [Nicorelief] 2 mg CHEW Q1H PRN 06/06/18 05:00 BASIC METABOLIC PANEL,BMP [CHEM] Timed CBC WITH AUTO DIFF [HEME] Timed MAGNESIUM [CHEM] Timed - Plan Plan:: ASSESSMENT / PLAN COPD exacerbation-This is 52-year-old present to ER with worsen of shortness of breath this evening and has been sick with respiratory illness since Saturday. and Grandson are sick with respiratory illness. She has standing orders from Dr. Reyna, Pulmonology, [place], [place]. to start Doxy 100mg po bid and Prednisone 40mg with worsen shortness of breath, has been taking medications for 2 days with out improvement. In emergency room she was noted to have shortness of breath, oxygen saturation at 89% to 91% on room air, she was started on oxygen and given nebulizer, oxygen saturations improved to 90%. Modest improvement in symptoms since admission. -IV Fluids for rehydration NS at 125 mL per hour -IV Antibiotic: Rocephin 1 g IV every 24 hours -IV Solu-Medrol 125 mg given in ER, order 62.5 mg IV every 6 hrs -albuterol nebulizer every 1 hours as needed for wheezing and cough -Duo neb ; schedule nebulize every 4 hours -oxygen per nasal cannula to keep oxygen sats greater than 92% Acute hypoxic respiratory failure-kidney. 2 COPD exacerbation with underlying bronchitis -Management as above Tobacco Use -Nicotine patch 14 mcg daily -2 mg Nicorette gum every hour as needed Maintenance issues -Nutrition: regular diet -Mar catheter not indicated at this time -DVT: Lovenox 40 mg subcut -PPI: IV Protonix 40mg daily CODE STATUS: DNR/DNI, will use Bipap Admission status: Admit to [address] [place] [address] Admission justification. This patient will be admitted for inpatient services and is medically appropriate meeting medical necessity for inpatient admission as outlined in my documentation. I reasonably expect the patient will require inpatient services that span. Time over 2 midnights. I reasonably expect this patient to be discharged or transferred within 96 hours after admission to the critical [facility]. Disposition: home Primary care provider: Dr. Mullen Hospitalist: Dr. Garnett
[2018-06-05] MEDS: Acetylcysteine 20% 200 MG/ML 4 ML Nebulizer Soln SDV NEB SCH ×2 (15:45→21:12)
[2018-06-05] MEDS ORDERED: LORazepam 2 MG/ML SDV IVPUSH ONE (16:30)
[2018-06-05] MEDS ORDERED: cefTRIAXone 1 GM in Sodium Chloride 0.9% 50 ML IV SCH (21:00)
[2018-06-06] MEDS: Albuterol/Ipratropium 3.0-0.5 MG/3 ML Neb Soln INH PRN ×4 (00:17→19:43)
[2018-06-06] MEDS: Acetaminophen 325 MG Tab PO PRN (00:39)
[2018-06-06] MEDS: Codeine/guaiFENesin 100mg-10 MG/5 ML Syrup 10 ML Cup PO PRN ×2 (00:39→20:59)
[2018-06-06] MEDS: methylPREDNISolone Sodium Succinate 125 MG/2 ML SDV IVPUSH SCH ×5 (02:35→19:48)
[2018-06-06] MEDS: Albuterol 0.083% 2.5 MG/3 ML Neb Soln NEB PRN ×2 (04:06→18:07)
[2018-06-06] MEDS: Sodium Chloride 0.9% 1,000 ML IV SCH (04:23)
[2018-06-06] MEDS: Pantoprazole 40 MG Tab.CR PO SCH (07:37)
[2018-06-06] MEDS: Acetylcysteine 20% 200 MG/ML 4 ML Nebulizer Soln SDV NEB SCH ×3 (07:51→20:00)
[2018-06-06] MEDS: Glycopyrrolate 15.6 MCG Cap.W.Dev Kit of 6 IH SCH ×2 (10:04→20:00)
[2018-06-06] MEDS: Enoxaparin 40 MG/0.4 ML Syringe SUBCUT SCH (10:08)
[2018-06-06] MEDS: Insulin Lispro 100 Unit/ML 3 ML KwikPen SUBCUT SCH ×4 (10:09→20:57)
[2018-06-06] MEDS: Nicotine 14 MG/24 Hr Patch TRDERM SCH (10:09)
[2018-06-06] MEDS: Aspirin 81 MG Tab.EC PO SCH (10:09)
[2018-06-06] MEDS: LORazepam 2 MG/ML SDV IV PRN ×2 (13:42→19:43)
[2018-06-06] MEDS ORDERED: Levofloxacin/Dextrose 5%-Water 500 MG in Premix Bag 1 BAG IV SCH (14:30)
--- NOTE | 2018-06-06 14:38 | PCM.PN ---
- General Info Date of Service: 06/06/18 Subjective Update: Ms. Ybarra disease to experience significant shortness of breath especially related to coughing. Saturations have been in the upper 80s to low 90s respiratory rate is better than it had been yesterday. No significant temperature elevations noted thus far white blood cell count remains elevated, this is likely at least somewhat secondary to glucocorticoid therapy. - Review of Systems General: Denies: Fever, Weakness, Chills Pulmonary: Reports: Shortness of Breath, Cough, Wheezing. Denies: Pleuritic Chest Pain, Sputum, Hemoptysis Cardiovascular: Reports: Dyspnea on Exertion. Denies: Chest Pain, Palpitations , Orthopnea, PND, Edema, Lightheadedness Gastrointestinal: Reports: No Symptoms - Patient Data Vitals - Most Recent: Last Vital Signs Temp 97.4 F 06/06/18 14:24 Pulse 111 H 06/06/18 14:24 Resp 16 06/06/18 14:24 BP 122/76 06/06/18 07:26 Pulse Ox 91 L 06/06/18 14:24 Weight - Most Recent: 173 lb 6.403 oz I&O - Last 24 Hours: Intake & Output 06/05/18 06/06/18 06/06/18 22:59 06:59 14:59 Intake Total 3200 310 400 Output Total 2000 1400 1400 Balance 1200 -1090 -1000 Lab Results Last 24 Hours: Laboratory Results - last 24 hr 06/06/18 06/06/18 Range/Units 05:25 05:25 WBC 15.3 H (4.5-11.0) K/uL RBC 3.97 (3.30-5.50) M/uL Hgb 12.6 D (12.0-15.0) g/dL Hct 39.5 (36.0-48.0) % MCV 100 H (80-98) fL MCH 32 H (27-31) pg MCHC 32 (32-36) % Plt Count 338 (150-400) K/uL Neut % (Auto) 90 H (36-66) % Lymph % (Auto) 4 L (24-44) % [place] % (Auto) 6 (2-6) % Eos % (Auto) 0 L (2-4) % Baso % (Auto) 0 (0-1) % Sodium 139 L (140-148) mmol/L Potassium 4.7 (3.6-5.2) mmol/L Chloride 104 (100-108) mmol/L Carbon Dioxide 25 (21-32) mmol/L Anion Gap 14.7 H (5.0-14.0) mmol/L BUN 14 (7-18) mg/dL Creatinine 0.8 (0.6-1.0) mg/dL Est Cr Clr Drug Dosing 72.22 mL/min Estimated GFR (MDRD) > 60 (>60) Glucose 179 H (74-106) mg/dL Calcium 8.7 (8.5-10.1) mg/dL Magnesium 1.9 (1.8-2.4) mg/dL Med Orders - Current: Current Medications Acetaminophen (Tylenol) 650 mg PO Q4H PRN PRN Reason: Pain (Mild 1-3)/fever Last Admin: 06/06/18 00:39 Dose: 650 mg Acetylcysteine (Mucomyst 20%) 200 mg NEB TIDRT [facility] Last Admin: 06/06/18 13:08 Dose: 200 mg Albuterol (Proventil Neb Soln) 2.5 mg NEB Q1H PRN PRN Reason: Shortness Of Breath/wheezing Last Admin: 06/06/18 04:06 Dose: 2.5 mg Albuterol/Ipratropium (Duoneb 3.0-0.5 Mg/3 Ml) 3 ml INH Q4H PRN PRN Reason: Shortness of Breath Last Admin: 06/06/18 13:08 Dose: 3 ml Aspirin (Halfprin) 81 mg PO DAILY [facility] Last Admin: 06/06/18 10:09 Dose: 81 mg Bisacodyl (Dulcolax) 5 mg PO DAILY PRN PRN Reason: Constipation Diphenhydramine HCl (Benadryl) 25 mg PO BEDTIME PRN PRN Reason: Insomnia Last Admin: 06/05/18 21:32 Dose: 25 mg Docusate Sodium (Colace) 100 mg PO BID PRN PRN Reason: Constipation Enoxaparin Sodium (Lovenox) 40 mg SUBCUT DAILY [facility] Last Admin: 06/06/18 10:08 Dose: 40 mg Glycopyrrolate (Seebri Neohaler) 15.6 mcg IH BIDRT [facility] Last Admin: 06/06/18 10:04 Dose: 15.6 mcg Guaifenesin/Codeine Phosphate (Robitussin Ac) 10 ml PO Q4H PRN PRN Reason: Cough Last Admin: 06/06/18 00:39 Dose: 10 ml Levofloxacin/Dextrose 500 mg/ (Premix) 100 mls @ 100 mls/hr IV Q24H [facility] Insulin Human Lispro (Humalog) 0 unit SUBCUT QIDACANDBED [facility]; Protocol Last Admin: 06/06/18 11:54 Dose: 2 units Lactobacillus Rhamnosus (Culturelle) 1 cap PO BID [facility] Lorazepam (Ativan) 0.5 mg IV Q2H PRN PRN Reason: Anxiety Last Admin: 06/06/18 13:42 Dose: 0.5 mg Melatonin (Melatonin) 6 mg PO BEDTIME PRN PRN Reason: Insomnia Last Admin: 06/06/18 00:39 Dose: 6 mg Methylprednisolone Sodium Succinate (Solu-Medrol) 40 mg IVPUSH Q6H [facility] Nicotine (Habitrol) 14 mg TRDERM DAILY [facility] Last Admin: 06/06/18 10:09 Dose: 14 mg Nicotine Polacrilex (Nicorelief) 2 mg CHEW Q1H PRN PRN Reason: Other Ondansetron HCl (Zofran Odt) 4 mg PO Q6H PRN PRN Reason: Nausea able to take PO Last Admin: 06/05/18 18:26 Dose: 4 mg Oxycodone HCl (Oxycodone) 5 mg PO Q4H PRN PRN Reason: Pain (moderate 4-6) Last Admin: 06/05/18 17:05 Dose: 5 mg Pantoprazole Sodium (Protonix) 40 mg PO ACBREAKFAST [facility] Last Admin: 06/06/18 07:37 Dose: 40 mg Temazepam (Restoril) 15 mg PO BEDTIME PRN PRN Reason: Sleep Discontinued Medications Albuterol (Proventil Neb Soln) 2.5 mg NEB ONETIME ONE Stop: 06/05/18 02:42 Last Admin: 06/05/18 02:53 Dose: 2.5 mg Albuterol/Ipratropium (Duoneb 3.0-0.5 Mg/3 Ml) 3 ml NEB ONETIME ONE Stop: 06/05/18 02:04 Last Admin: 06/05/18 02:14 Dose: 3 ml Ceftriaxone Sodium 1 gm/ (Sodium Chloride) 50 mls @ 100 mls/hr IV ONETIME ONE Stop: 06/05/18 02:33 Last Admin: 06/05/18 02:23 Dose: 100 mls/hr Ceftriaxone Sodium 1 gm/ (Sodium Chloride) 50 mls @ 100 mls/hr IV Q24H [facility] Last Admin: 06/05/18 21:11 Dose: 100 mls/hr Sodium Chloride (Normal Saline) 1,000 mls @ 75 mls/hr IV ASDIRECTED [facility] Last Admin: 06/06/18 04:23 Dose: 75 mls/hr Lorazepam (Ativan) 1 mg IV Q6H PRN PRN Reason: Nausea/Vomiting Last Admin: 06/05/18 06:03 Dose: 1 mg Lorazepam (Ativan) 0.5 mg IVPUSH ONETIME ONE Stop: 06/05/18 16:31 Last Admin: 06/05/18 16:30 Dose: 0.5 mg Methylprednisolone Sodium Succinate (Solu-Medrol) 125 mg IVPUSH ONETIME ONE Stop: 06/05/18 02:04 Last Admin: 06/05/18 02:19 Dose: 125 mg Methylprednisolone Sodium Succinate (Solu-Medrol) 62.5 mg IVPUSH Q6H [facility] Last Admin: 06/06/18 07:37 Dose: 62.5 mg Pantoprazole Sodium (Protonix Iv) 40 mg IVPUSH DAILY [facility] - Exam Quality Assessment: Supplemental Oxygen General: Alert, Oriented, Cooperative, Mild Distress Lungs: Decreased Breath Sounds, Wheezing. No: Crackles, Rales, Rhonchi Cardiovascular: Regular Rate, Regular Rhythm, No Murmurs GI/Abdominal Exam: Soft, Non-Tender, No Organomegaly, No Distention Extremities: Non-Tender, Pedal Edema - Problem List Review Problem List Initiated/Reviewed/Updated: Yes - My Orders Last 24 Hours: My Active Orders 06/05/18 15:30 RT Aerosol Therapy [RC] ASDIRECTED Acetylcysteine [Mucomyst 20%] 200 mg NEB TIDRT Nicotine Polacrilex [Nicorelief] 2 mg CHEW Q1H PRN 06/05/18 20:33 CPAP Adult [RT BiPAP/CPAP] [RC] ASDIRECTED 06/06/18 14:28 Convert IV to Saline Lock [OM.PC] Routine 06/06/18 14:30 Lactobacillus Rhamnosus GG [Culturelle] 1 cap PO BID Levofloxacin/Dextrose 5%-Water [Levaquin in D5W 500 MG/100 ML] 500 mg Premix Bag 1 bag IV Q24H methylPREDNISolone Sod Succ [Solu-MEDROL] 40 mg IVPUSH Q6H 06/06/18 16:30 GLUCOSE POC LAB TO COLLECT [POC] QIDACANDBED 06/06/18 21:00 GLUCOSE POC LAB TO COLLECT [POC] QIDACANDBED 06/07/18 05:00 CBC WITH AUTO DIFF [HEME] Timed 06/07/18 07:30 GLUCOSE POC LAB TO COLLECT [POC] QIDACANDBED 06/07/18 11:30 GLUCOSE POC LAB TO COLLECT [POC] QIDACANDBED 06/07/18 16:30 GLUCOSE POC LAB TO COLLECT [POC] QIDACANDBED 06/07/18 21:00 GLUCOSE POC LAB TO COLLECT [POC] QIDACANDBED 06/08/18 07:30 GLUCOSE POC LAB TO COLLECT [POC] QIDACANDBED 06/08/18 11:30 GLUCOSE POC LAB TO COLLECT [POC] QIDACANDBED 06/08/18 16:30 GLUCOSE POC LAB TO COLLECT [POC] QIDACANDBED 06/08/18 21:00 GLUCOSE POC LAB TO COLLECT [POC] QIDACANDBED 06/09/18 07:30 GLUCOSE POC LAB TO COLLECT [POC] QIDACANDBED 06/09/18 11:30 GLUCOSE POC LAB TO COLLECT [POC] QIDACANDBED 06/09/18 16:30 GLUCOSE POC LAB TO COLLECT [POC] QIDACANDBED 06/09/18 21:00 GLUCOSE POC LAB TO COLLECT [POC] QIDACANDBED - Plan Plan:: ASSESSMENT / PLAN COPD exacerbation-has not noted significant improvement over last 24 hours, remains very short of breath with persistent cough. Cough for the most part is been nonproductive but she does feel that it somewhat looser today. -Saline lock IV -IV Antibiotic: Levaquin 500 mg IV every 24 hours -IV Solu-Medrol 40 mg IV every 6 hours -albuterol nebulizer every 1 hours as needed for wheezing and cough -Duo neb ; schedule nebulize every 4 hours -oxygen per nasal cannula to keep oxygen sats greater than 92% Acute hypoxic respiratory failure-kidney. 2 COPD exacerbation with underlying bronchitis -Management as above Tobacco Use -Nicotine patch 14 mcg daily -2 mg Nicorette gum every hour as needed Maintenance issues -Nutrition: regular diet -Mar catheter not indicated at this time -DVT: Lovenox 40 mg subcut -PPI: IV Protonix 40mg daily CODE STATUS: DNR/DNI, will use Bipap Admission status: Admit to [address] [place] [address] Admission justification. This patient will be admitted for inpatient services and is medically appropriate meeting medical necessity for inpatient admission as outlined in my documentation. I reasonably expect the patient will require inpatient services that span. Time over 2 midnights. I reasonably expect this patient to be discharged or transferred within 96 hours after admission to the critical [facility]. Disposition: home Primary care provider: Dr. Mullen Hospitalist: Dr. Garnett
[2018-06-06] MEDS: Lactobacillus Rhamnosus GG (Probiotic) Cap PO SCH ×2 (16:37→20:00)
[2018-06-06] MEDS: diphenhydrAMINE 25 MG Cap PO PRN (19:44)
--- NOTE | 2018-06-06 20:21 | PCM.SN ---
- Free Text/Narrative Note: Time: 20:18; request for medication from [address] [place] [address] S: Mrs. Ybarra request Mylanta for acid reflux/heartburn O: vital signs 37.0- 124-20 B/P 136/88 O2 sat 98% on 3 liter A: GERD P: Mylanta 30ml susp po every 4 hours prn continue present plan of care.
[2018-06-06] MEDS: Aluminum Hydroxide/Magnesium Hydroxide/Simethicone Susp 30 ML Cup PO PRN (20:59)
[2018-06-07] MEDS: methylPREDNISolone Sodium Succinate 125 MG/2 ML SDV IVPUSH SCH ×2 (03:17→08:37)
[2018-06-07] MEDS: Albuterol 0.083% 2.5 MG/3 ML Neb Soln NEB PRN ×2 (03:18→16:58)
[2018-06-07] MEDS: LORazepam 2 MG/ML SDV IV PRN ×3 (03:45→15:18)
[2018-06-07] MEDS: Albuterol/Ipratropium 3.0-0.5 MG/3 ML Neb Soln INH PRN ×3 (07:56→19:27)
[2018-06-07] MEDS: Acetylcysteine 20% 200 MG/ML 4 ML Nebulizer Soln SDV NEB SCH ×3 (07:56→21:04)
[2018-06-07] MEDS: Glycopyrrolate 15.6 MCG Cap.W.Dev Kit of 6 IH SCH ×2 (08:01→21:05)
[2018-06-07] MEDS: Enoxaparin 40 MG/0.4 ML Syringe SUBCUT SCH (08:37)
[2018-06-07] MEDS: Lactobacillus Rhamnosus GG (Probiotic) Cap PO SCH ×2 (08:38→21:05)
[2018-06-07] MEDS: Nicotine 14 MG/24 Hr Patch TRDERM SCH (08:38)
[2018-06-07] MEDS: Aspirin 81 MG Tab.EC PO SCH (08:38)
[2018-06-07] MEDS: Pantoprazole 40 MG Tab.CR PO SCH (08:38)
[2018-06-07] MEDS: Insulin Lispro 100 Unit/ML 3 ML KwikPen SUBCUT SCH ×4 (08:39→21:04)
[2018-06-07] MEDS: Docusate Sodium 100 MG Cap PO PRN (12:34)
[2018-06-07] MEDS: Acetaminophen 325 MG Tab PO PRN (12:36)
--- NOTE | 2018-06-07 13:21 | PCM.PN ---
- General Info Date of Service: 06/07/18 Subjective Update: Ms. Ybarra has experienced further modest improvement in breathing over the last 24 hours. She is much more comfortable at rest than she had been previously and was able to sleep through the night without significant difficulty. Cough continues to improve and she has remained afebrile. She is experiencing some difficulty with constipation and will require bowel stimulation. Functional Status: Reports: Tolerating Diet, Urinating - Review of Systems General: Denies: Fever, Chills Pulmonary: Reports: Shortness of Breath, Cough, Wheezing. Denies: Pleuritic Chest Pain, Sputum, Hemoptysis Cardiovascular: Reports: Dyspnea on Exertion. Denies: Chest Pain, Palpitations , Orthopnea, PND, Edema, Lightheadedness Gastrointestinal: Reports: No Symptoms - Patient Data Vitals - Most Recent: Last Vital Signs Temp 96.8 F 06/07/18 09:00 Pulse 96 06/07/18 13:05 Resp 20 06/07/18 09:00 BP 131/80 06/07/18 09:00 Pulse Ox 93 L 06/07/18 09:00 Weight - Most Recent: 173 lb 6.403 oz I&O - Last 24 Hours: Intake & Output 06/06/18 06/07/18 06/07/18 22:59 06:59 14:59 Intake Total 1452 500 Output Total 700 1000 Balance 752 -500 Lab Results Last 24 Hours: Laboratory Results - last 24 hr 06/07/18 Range/Units 06:00 WBC 17.7 H (4.5-11.0) K/uL RBC 4.03 (3.30-5.50) M/uL Hgb 13.1 (12.0-15.0) g/dL Hct 39.6 (36.0-48.0) % MCV 98 (80-98) fL MCH 33 H (27-31) pg MCHC 33 (32-36) % Plt Count 346 (150-400) K/uL Neut % (Auto) 89 H (36-66) % Lymph % (Auto) 5 L (24-44) % [place] % (Auto) 7 H (2-6) % Eos % (Auto) 0 L (2-4) % Baso % (Auto) 0 (0-1) % Med Orders - Current: Current Medications Acetaminophen (Tylenol) 650 mg PO Q4H PRN PRN Reason: Pain (Mild 1-3)/fever Last Admin: 06/07/18 12:36 Dose: 650 mg Acetylcysteine (Mucomyst 20%) 200 mg NEB TIDRT [facility] Last Admin: 06/07/18 13:03 Dose: 200 mg Al Hydroxide/Mg Hydroxide (Mag-Al Plus) 30 ml PO Q8H PRN PRN Reason: Heartburn Last Admin: 06/06/18 20:59 Dose: 30 ml Albuterol (Proventil Neb Soln) 2.5 mg NEB Q1H PRN PRN Reason: Shortness Of Breath/wheezing Last Admin: 06/07/18 03:18 Dose: 2.5 mg Albuterol/Ipratropium (Duoneb 3.0-0.5 Mg/3 Ml) 3 ml INH Q4H PRN PRN Reason: Shortness of Breath Last Admin: 06/07/18 13:03 Dose: 3 ml Aspirin (Halfprin) 81 mg PO DAILY [facility] Last Admin: 06/07/18 08:38 Dose: 81 mg Bisacodyl (Dulcolax) 5 mg PO DAILY PRN PRN Reason: Constipation Last Admin: 06/07/18 12:34 Dose: 5 mg Diphenhydramine HCl (Benadryl) 25 mg PO BEDTIME PRN PRN Reason: Insomnia Last Admin: 06/06/18 19:44 Dose: 25 mg Docusate Sodium (Colace) 100 mg PO BID PRN PRN Reason: Constipation Last Admin: 06/07/18 12:34 Dose: 100 mg Enoxaparin Sodium (Lovenox) 40 mg SUBCUT DAILY [facility] Last Admin: 06/07/18 08:37 Dose: 40 mg Glycopyrrolate (Seebri Neohaler) 15.6 mcg IH BIDRT [facility] Last Admin: 06/07/18 08:01 Dose: 15.6 mcg Guaifenesin/Codeine Phosphate (Robitussin Ac) 10 ml PO Q4H PRN PRN Reason: Cough Last Admin: 06/06/18 20:59 Dose: 10 ml Clindamycin Phosphate 300 mg/ (Sodium Chloride) 52 mls @ 150 mls/hr IV Q8H [facility] Last Admin: 06/07/18 08:37 Dose: 150 mls/hr Insulin Human Lispro (Humalog) 0 unit SUBCUT QIDACANDBED [facility]; Protocol Last Admin: 06/07/18 12:26 Dose: 1 units Lactobacillus Rhamnosus (Culturelle) 1 cap PO BID [facility] Last Admin: 06/07/18 08:38 Dose: 1 cap Lorazepam (Ativan) 0.5 mg IV Q2H PRN PRN Reason: Anxiety Last Admin: 06/07/18 12:24 Dose: 0.5 mg Melatonin (Melatonin) 6 mg PO BEDTIME PRN PRN Reason: Insomnia Last Admin: 06/06/18 00:39 Dose: 6 mg Methylprednisolone Sodium Succinate (Solu-Medrol) 40 mg IVPUSH Q12H [facility] Nicotine (Habitrol) 14 mg TRDERM DAILY [facility] Last Admin: 06/07/18 08:38 Dose: 14 mg Nicotine Polacrilex (Nicorelief) 2 mg CHEW Q1H PRN PRN Reason: Other Ondansetron HCl (Zofran Odt) 4 mg PO Q6H PRN PRN Reason: Nausea able to take PO Last Admin: 06/05/18 18:26 Dose: 4 mg Oxycodone HCl (Oxycodone) 5 mg PO Q4H PRN PRN Reason: Pain (moderate 4-6) Last Admin: 06/05/18 17:05 Dose: 5 mg Pantoprazole Sodium (Protonix) 40 mg PO ACBREAKFAST [facility] Last Admin: 06/07/18 08:38 Dose: 40 mg Polyethylene Glycol (Miralax) 17 gm PO BID PRN PRN Reason: Constipation Temazepam (Restoril) 15 mg PO BEDTIME PRN PRN Reason: Sleep Discontinued Medications Albuterol (Proventil Neb Soln) 2.5 mg NEB ONETIME ONE Stop: 06/05/18 02:42 Last Admin: 06/05/18 02:53 Dose: 2.5 mg Albuterol/Ipratropium (Duoneb 3.0-0.5 Mg/3 Ml) 3 ml NEB ONETIME ONE Stop: 06/05/18 02:04 Last Admin: 06/05/18 02:14 Dose: 3 ml Ceftriaxone Sodium 1 gm/ (Sodium Chloride) 50 mls @ 100 mls/hr IV ONETIME ONE Stop: 06/05/18 02:33 Last Admin: 06/05/18 02:23 Dose: 100 mls/hr Ceftriaxone Sodium 1 gm/ (Sodium Chloride) 50 mls @ 100 mls/hr IV Q24H [facility] Last Admin: 06/05/18 21:11 Dose: 100 mls/hr Sodium Chloride (Normal Saline) 1,000 mls @ 75 mls/hr IV ASDIRECTED [facility] Last Admin: 06/06/18 04:23 Dose: 75 mls/hr Levofloxacin/Dextrose 500 mg/ (Premix) 100 mls @ 100 mls/hr IV Q24H [facility] Last Admin: 06/06/18 16:51 Dose: Not Given Lorazepam (Ativan) 1 mg IV Q6H PRN PRN Reason: Nausea/Vomiting Last Admin: 06/05/18 06:03 Dose: 1 mg Lorazepam (Ativan) 0.5 mg IVPUSH ONETIME ONE Stop: 06/05/18 16:31 Last Admin: 06/05/18 16:30 Dose: 0.5 mg Methylprednisolone Sodium Succinate (Solu-Medrol) 125 mg IVPUSH ONETIME ONE Stop: 06/05/18 02:04 Last Admin: 06/05/18 02:19 Dose: 125 mg Methylprednisolone Sodium Succinate (Solu-Medrol) 62.5 mg IVPUSH Q6H [facility] Last Admin: 06/06/18 16:51 Dose: Not Given Methylprednisolone Sodium Succinate (Solu-Medrol) 40 mg IVPUSH Q6H [facility] Last Admin: 06/07/18 08:37 Dose: 40 mg Methylprednisolone Sodium Succinate (Solu-Medrol) 40 mg IVPUSH Q6H [facility] Pantoprazole Sodium (Protonix Iv) 40 mg IVPUSH DAILY [facility] - Exam Quality Assessment: Supplemental Oxygen, DVT Prophylaxis General: Alert, Oriented, Cooperative, Mild Distress Lungs: Decreased Breath Sounds, Wheezing. No: Rales, Rhonchi, Rub Cardiovascular: Regular Rate, Regular Rhythm, No Murmurs GI/Abdominal Exam: Soft, Non-Tender, No Organomegaly, No Distention Extremities: Non-Tender, No Pedal Edema - Problem List Review Problem List Initiated/Reviewed/Updated: Yes - My Orders Last 24 Hours: My Active Orders 06/06/18 14:28 Convert IV to Saline Lock [OM.PC] Routine 06/06/18 14:30 Lactobacillus Rhamnosus GG [Culturelle] 1 cap PO BID 06/06/18 16:00 Clindamycin Phosphate [Cleocin] 300 mg Sodium Chloride 0.9% [Normal Saline] 50 ml IV Q8H 06/07/18 13:16 Polyethylene Glycol 3350 [MiraLAX] 17 gm PO BID PRN 06/07/18 13:30 methylPREDNISolone Sod Succ [Solu-MEDROL] 40 mg IVPUSH Q12H 06/07/18 16:30 GLUCOSE POC LAB TO COLLECT [POC] QIDACANDBED 06/07/18 21:00 GLUCOSE POC LAB TO COLLECT [POC] QIDACANDBED 06/08/18 05:00 CBC WITH AUTO DIFF [HEME] Timed 06/08/18 07:30 GLUCOSE POC LAB TO COLLECT [POC] QIDACANDBED 06/08/18 11:30 GLUCOSE POC LAB TO COLLECT [POC] QIDACANDBED 06/08/18 16:30 GLUCOSE POC LAB TO COLLECT [POC] QIDACANDBED 06/08/18 21:00 GLUCOSE POC LAB TO COLLECT [POC] QIDACANDBED 06/09/18 07:30 GLUCOSE POC LAB TO COLLECT [POC] QIDACANDBED 06/09/18 11:30 GLUCOSE POC LAB TO COLLECT [POC] QIDACANDBED 06/09/18 16:30 GLUCOSE POC LAB TO COLLECT [POC] QIDACANDBED 06/09/18 21:00 GLUCOSE POC LAB TO COLLECT [POC] QIDACANDBED - Plan Plan:: ASSESSMENT / PLAN COPD exacerbation-improved today, more comfortable at rest -Saline lock IV -IV Antibiotic: Clindamycin 300 mg IV every 6 hours -IV Solu-Medrol 40 mg IV every 12 hours -albuterol nebulizer every 1 hours as needed for wheezing and cough -Duo neb ; schedule nebulize every 4 hours -oxygen per nasal cannula to keep oxygen sats greater than 92% Acute hypoxic respiratory failure-kidney. 2 COPD exacerbation with underlying bronchitis -Management as above Tobacco Use -Nicotine patch 14 mcg daily -2 mg Nicorette gum every hour as needed Constipation -Her lack 17 g by mouth twice a day as needed Maintenance issues -Nutrition: regular diet -Mar catheter not indicated at this time -DVT: Lovenox 40 mg subcut -PPI: IV Protonix 40mg daily CODE STATUS: DNR/DNI, will use Bipap Admission status: Admit to [address] [place] [address]. This patient will be admitted for inpatient services and is medically appropriate meeting medical necessity for inpatient admission as outlined in my documentation. I reasonably expect the patient will require inpatient services that span. Time over 2 midnights. I reasonably expect this patient to be discharged or transferred within 96 hours after admission to the [facility]. Disposition: home Primary care provider: Dr. Mullen Hospitalist: Dr. Garnett
[2018-06-07] MEDS ORDERED: methylPREDNISolone Sodium Succinate 40 MG/1 ML SDV IVPUSH SCH (14:30)
[2018-06-07] MEDS: Polyethylene Glycol 3350 Powder 17 GM Packet PO PRN (15:19)
[2018-06-07] MEDS: Aluminum Hydroxide/Magnesium Hydroxide/Simethicone Susp 30 ML Cup PO PRN ×2 (16:58→19:26)
[2018-06-07] MEDS: Codeine/guaiFENesin 100mg-10 MG/5 ML Syrup 10 ML Cup PO PRN (19:26)
[2018-06-07] MEDS: methylPREDNISolone Sodium Succinate 40 MG/1 ML SDV IVPUSH SCH (19:28)
[2018-06-07] MEDS: LORazepam 0.5 MG Tab PO PRN (21:05)
[2018-06-08] MEDS: Glycopyrrolate 15.6 MCG Cap.W.Dev Kit of 6 IH SCH (07:39)
[2018-06-08] MEDS: Acetylcysteine 20% 200 MG/ML 4 ML Nebulizer Soln SDV NEB SCH (07:39)
[2018-06-08] MEDS: Albuterol/Ipratropium 3.0-0.5 MG/3 ML Neb Soln INH PRN (07:39)
[2018-06-08] MEDS: Insulin Lispro 100 Unit/ML 3 ML KwikPen SUBCUT SCH (08:07)
[2018-06-08] MEDS: Nicotine 14 MG/24 Hr Patch TRDERM SCH (08:20)
[2018-06-08] MEDS: LORazepam 0.5 MG Tab PO PRN (08:21)
[2018-06-08] MEDS: Polyethylene Glycol 3350 Powder 17 GM Packet PO PRN (08:22)
[2018-06-08] MEDS: Acetaminophen 325 MG Tab PO PRN (08:22)
[2018-06-08] MEDS: methylPREDNISolone Sodium Succinate 40 MG/1 ML SDV IVPUSH SCH (08:22)
[2018-06-08] MEDS: Docusate Sodium 100 MG Cap PO PRN (08:23)
[2018-06-08] MEDS: Enoxaparin 40 MG/0.4 ML Syringe SUBCUT SCH (08:23)
[2018-06-08] MEDS: Lactobacillus Rhamnosus GG (Probiotic) Cap PO SCH (08:23)
[2018-06-08] MEDS: Aspirin 81 MG Tab.EC PO SCH (08:23)
[2018-06-08] MEDS: Pantoprazole 40 MG Tab.CR PO SCH (08:23)
[2018-06-08 11:20] VITALS: BP 124/88
--- NOTE | 2018-06-08 12:18 | PCM.DCSUM1 ---
Discharge Summary - Hospital Course Brief History: Ms. Ybarra is a 52-year-old woman who was admitted through the emergency department with increased shortness of breath cough and hypoxia secondary to COPD exacerbation and underlying bronchitis. - Discharge Data Discharge Date: 06/08/18 Discharge Disposition: Home, W Home Health Agency 06 Condition: Fair - Discharge Diagnosis/Problem(s) (1) Bronchitis SNOMED Code(s): 41134265 ICD Code: J40 - BRONCHITIS, NOT SPECIFIED ACUTE OR CHRONIC Status: Acute Current Visit: Yes (2) Acute respiratory failure with hypoxia SNOMED Code(s): 51245800, 384213748 ICD Code: J96.01 - ACUTE RESPIRATORY FAILURE WITH HYPOXIA Status: Acute Current Visit: Yes (3) COPD exacerbation SNOMED Code(s): 228841090 ICD Code: J44.1 - CHRONIC OBSTRUCTIVE PULMONARY DISEASE W (ACUTE) EXACERBATION Status: Chronic Priority: High Current Visit: No - Patient Summary/Data Consults: Consultations 06/05/18 03:27 Respiratory Care Assess and Treatment [CONS] Routine Comment: Physician Instructions: Hospital Course: Ms. 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 She felt an exacerbation starting several days ago, started doxycycline 2 days ago and a prednisone taper starting at 40 mg daily. Despite the medicine she doesn't feel she is improving. No fevers or chills. No productive cough. She is still smoking. Chest hurts from coughing and she remains very short of breath An IV was started, patient was given 125 mg of IV Solu-Medrol, 1 g of IV Rocephin and also a DuoNeb. Portable chest x-ray showed no acute infiltrates. Patient had slight improvement objectively after the DuoNeb, her O2 sats was still hovering between 89 and 91 so she was given 2 L of nasal cannula O2. She initially was given IV fluids for hydration and ongoing use of supplemental oxygen. The first 2 days of hospitalization really noted no significant improvement in symptoms but over the next few days did experience good improvement. She continued to use her C Pap frequently throughout the hospital stay. On the day of discharge she requested to be sent home I encouraged her to consider at least one further day of hospitalization and she still became short of breath with fairly minimal exertion. Despite this she did want to go home and will be discharged home on home oxygen. Oxygen saturation obtained on room air prior to discharge was low at 88%. She will be discharged with portable oxygen as well as a home concentrator. Activity will be as tolerated and she will resume her usual diet. In addition to the home oxygen she will be on prednisone 40 mg daily for 3 days then 20 mg daily thereafter until seen for follow-up by Dr. Mullen. She will be on a 3 more days of oral clindamycin which will then be discontinued. Home care will be arranged for follow-up after discharge including home physical therapy and occupational therapy. Follow-up appointment will be scheduled with Dr. Mullen within one week. - Discharge Plan *PRESCRIPTION DRUG MONITORING PROGRAM REVIEWED*: Not Applicable *COPY OF PRESCRIPTION DRUG MONITORING REPORT IN PATIENT IRIS: Not Applicable Prescriptions/Med Rec: Clindamycin HCl 300 mg PO QID #12 capsule predniSONE [Prednisone] 40 mg PO DAILY #20 tablet Home Medications: Home Meds Albuterol [Ventolin HFA] 2 puff INH Q4H PRN 07/28/16 [History] Fluticasone/Salmeterol [Advair Diskus 500-50] 1 puff INH BID 07/28/16 [History] Umeclidinium [place] [Incruse Ellipta*] 1 puff INH DAILY 07/28/16 [History] Albuterol [Proventil Neb Soln] 3 ml INH Q4H PRN 06/05/18 [History] Albuterol/Ipratropium [DuoNeb 3.0-0.5 MG/3 ML] 1 dose INH Q4H PRN 06/05/18 [ History] Aspirin [[place] Aspirin EC] 1 tab PO DAILY 06/05/18 [History] Cholecalciferol (Vitamin D3) [Vitamin D3] 1,000 units PO BID 06/05/18 [History] Guaifenesin/Pseudoephedrne HCl [Mucinex D ER Tablet] 1 tab PO ASDIRECTED [History] Multivitamin [Daily Multiple Vitamin] 1 tab PO DAILY 06/05/18 [History] Ranitidine HCl [Zantac] 1 tab PO BID 06/05/18 [History] Clindamycin HCl 300 mg PO QID #12 capsule 06/08/18 [Rx] predniSONE [Prednisone] 40 mg PO DAILY #20 tablet 06/08/18 [Rx] Patient Handouts: Steps to Quit Smoking, [id number], Chronic Obstructive Pulmonary Disease, [id number] Forms: ED Department Discharge Referrals: Anderson Mullen MD [Primary Care Provider] - - Discharge Summary/Plan Comment DC Time >30 min.: No - Patient Data Vitals - Most Recent: Last Vital Signs Temp 95.5 F 06/08/18 11:00 Pulse 88 06/08/18 11:00 Resp 16 06/08/18 11:00 BP 124/88 06/08/18 11:00 Pulse Ox 93 L 06/08/18 11:39 Weight - Most Recent: 173 lb 6.403 oz I&O - Last 24 hours: Intake & Output 06/07/18 06/08/18 06/08/18 22:59 06:59 14:59 Intake Total 1295 390 Output Total 300 1000 Balance 995 -610 Lab Results - Last 24 hrs: Laboratory Results - last 24 hr 06/08/18 Range/Units 06:02 WBC 14.1 H (4.5-11.0) K/uL RBC 4.24 (3.30-5.50) M/uL Hgb 13.3 (12.0-15.0) g/dL Hct 41.6 (36.0-48.0) % MCV 98 (80-98) fL MCH 31 (27-31) pg MCHC 32 (32-36) % Plt Count 347 (150-400) K/uL Neut % (Auto) 73 H (36-66) % Lymph % (Auto) 15 L (24-44) % [place] % (Auto) 11 H (2-6) % Eos % (Auto) 0 L (2-4) % Baso % (Auto) 0 (0-1) % Med Orders - Current: Current Medications Acetaminophen (Tylenol) 650 mg PO Q4H PRN PRN Reason: Pain (Mild 1-3)/fever Last Admin: 06/08/18 08:22 Dose: 650 mg Acetylcysteine (Mucomyst 20%) 200 mg NEB TIDRT LARRY Last Admin: 06/08/18 07:39 Dose: 200 mg Al Hydroxide/Mg Hydroxide (Mag-Al Plus) 30 ml PO Q8H PRN PRN Reason: Heartburn Last Admin: 06/07/18 19:26 Dose: 30 ml Albuterol (Proventil Neb Soln) 2.5 mg NEB Q1H PRN PRN Reason: Shortness Of Breath/wheezing Last Admin: 06/07/18 16:58 Dose: 2.5 mg Albuterol/Ipratropium (Duoneb 3.0-0.5 Mg/3 Ml) 3 ml INH Q4H PRN PRN Reason: Shortness of Breath Last Admin: 06/08/18 07:39 Dose: 3 ml Aspirin (Halfprin) 81 mg PO DAILY [facility] Last Admin: 06/08/18 08:23 Dose: 81 mg Bisacodyl (Dulcolax) 5 mg PO DAILY PRN PRN Reason: Constipation Last Admin: 06/07/18 12:34 Dose: 5 mg Diphenhydramine HCl (Benadryl) 25 mg PO BEDTIME PRN PRN Reason: Insomnia Last Admin: 06/06/18 19:44 Dose: 25 mg Docusate Sodium (Colace) 100 mg PO BID PRN PRN Reason: Constipation Last Admin: 06/08/18 08:23 Dose: 100 mg Enoxaparin Sodium (Lovenox) 40 mg SUBCUT DAILY [facility] Last Admin: 06/08/18 08:23 Dose: Not Given Glycopyrrolate (Seebri Neohaler) 15.6 mcg IH BIDRT [facility] Last Admin: 06/08/18 07:39 Dose: 15.6 mcg Guaifenesin/Codeine Phosphate (Robitussin Ac) 10 ml PO Q4H PRN PRN Reason: Cough Last Admin: 06/07/18 19:26 Dose: 10 ml Clindamycin Phosphate 300 mg/ (Sodium Chloride) 52 mls @ 150 mls/hr IV Q8H [facility] Last Admin: 06/08/18 08:23 Dose: 150 mls/hr Insulin Human Lispro (Humalog) 0 unit SUBCUT QIDACANDBED [facility]; Protocol Last Admin: 06/08/18 08:07 Dose: Not Given Lactobacillus Rhamnosus (Culturelle) 1 cap PO BID [facility] Last Admin: 06/08/18 08:23 Dose: 1 cap Lorazepam (Ativan) 0.5 mg PO Q2H PRN PRN Reason: Anxiety Last Admin: 02/10/19 08:21 Dose: 0.5 mg Melatonin (Melatonin) 6 mg PO BEDTIME PRN PRN Reason: Insomnia Last Admin: 06/06/18 00:39 Dose: 6 mg Methylprednisolone Sodium Succinate (Solu-Medrol) 40 mg IVPUSH Q12H [facility] Last Admin: 06/08/18 08:22 Dose: 40 mg Nicotine (Habitrol) 14 mg TRDERM DAILY [facility] Last Admin: 06/08/18 08:20 Dose: 14 mg Nicotine Polacrilex (Nicorelief) 2 mg CHEW Q1H PRN PRN Reason: Other Ondansetron HCl (Zofran Odt) 4 mg PO Q6H PRN PRN Reason: Nausea able to take PO Last Admin: 06/05/18 18:26 Dose: 4 mg Oxycodone HCl (Oxycodone) 5 mg PO Q4H PRN PRN Reason: Pain (moderate 4-6) Last Admin: 06/05/18 17:05 Dose: 5 mg Pantoprazole Sodium (Protonix) 40 mg PO ACBREAKFAST [facility] Last Admin: 06/08/18 08:23 Dose: 40 mg Polyethylene Glycol (Miralax) 17 gm PO BID PRN PRN Reason: Constipation Last Admin: 06/08/18 08:22 Dose: 17 gm Temazepam (Restoril) 15 mg PO BEDTIME PRN PRN Reason: Sleep Discontinued Medications Albuterol (Proventil Neb Soln) 2.5 mg NEB ONETIME ONE Stop: 06/05/18 02:42 Last Admin: 06/05/18 02:53 Dose: 2.5 mg Albuterol/Ipratropium (Duoneb 3.0-0.5 Mg/3 Ml) 3 ml NEB ONETIME ONE Stop: 06/05/18 02:04 Last Admin: 06/05/18 02:14 Dose: 3 ml Ceftriaxone Sodium 1 gm/ (Sodium Chloride) 50 mls @ 100 mls/hr IV ONETIME ONE Stop: 06/05/18 02:33 Last Admin: 06/05/18 02:23 Dose: 100 mls/hr Ceftriaxone Sodium 1 gm/ (Sodium Chloride) 50 mls @ 100 mls/hr IV Q24H [facility] Last Admin: 06/05/18 21:11 Dose: 100 mls/hr Sodium Chloride (Normal Saline) 1,000 mls @ 75 mls/hr IV ASDIRECTED [facility] Last Admin: 06/06/18 04:23 Dose: 75 mls/hr Levofloxacin/Dextrose 500 mg/ (Premix) 100 mls @ 100 mls/hr IV Q24H [facility] Last Admin: 06/06/18 16:51 Dose: Not Given Lorazepam (Ativan) 1 mg IV Q6H PRN PRN Reason: Nausea/Vomiting Last Admin: 06/05/18 06:03 Dose: 1 mg Lorazepam (Ativan) 0.5 mg IV Q2H PRN PRN Reason: Anxiety Last Admin: 06/07/18 15:18 Dose: 0.5 mg Lorazepam (Ativan) 0.5 mg IVPUSH ONETIME ONE Stop: 06/05/18 16:31 Last Admin: 06/05/18 16:30 Dose: 0.5 mg Methylprednisolone Sodium Succinate (Solu-Medrol) 125 mg IVPUSH ONETIME ONE Stop: 06/05/18 02:04 Last Admin: 06/05/18 02:19 Dose: 125 mg Methylprednisolone Sodium Succinate (Solu-Medrol) 62.5 mg IVPUSH Q6H [facility] Last Admin: 06/06/18 16:51 Dose: Not Given Methylprednisolone Sodium Succinate (Solu-Medrol) 40 mg IVPUSH Q6H [facility] Last Admin: 06/07/18 08:37 Dose: 40 mg Methylprednisolone Sodium Succinate (Solu-Medrol) 40 mg IVPUSH Q6H [facility] Pantoprazole Sodium (Protonix Iv) 40 mg IVPUSH DAILY LARRY - Exam General: Reports: Alert, Oriented, Cooperative, Mild Distress Lungs: Reports: Decreased Breath Sounds, Wheezing. Denies: Rales, Rhonchi, Rub Cardiovascular: Reports: Regular Rate, Regular Rhythm, No Murmurs GI/Abdominal Exam: Soft, Non-Tender, No Organomegaly, No Distention
== END 2018-06-08 14:09 | disposition home health service (06) | DRG 190 ==
LOC: JP.ED 01:42 → JP.MS 02:35
PROVIDERS: ADMIT Hospitalist; ATTEND Hospitalist
DX: J44.0 Chronic obstructive pulmonary disease with (acute) lower respiratory infection (principal); J96.01 Acute respiratory failure with hypoxia; J20.9 Acute bronchitis, unspecified; J44.1 Chronic obstructive pulmonary disease with (acute) exacerbation; F17.210 Nicotine dependence, cigarettes, uncomplicated; R06.02 Shortness of breath; R09.02 Hypoxemia; Z66 Do not resuscitate; K59.00 Constipation, unspecified; K21.9 Gastro-esophageal reflux disease without esophagitis; G47.30 Sleep apnea, unspecified; M19.90 Unspecified osteoarthritis, unspecified site; M81.0 Age-related osteoporosis without current pathological fracture; G62.9 Polyneuropathy, unspecified; Z99.81 Dependence on supplemental oxygen; Z99.89 Dependence on other enabling machines and devices; Z87.898 Personal history of other specified conditions; Z87.442 Personal history of urinary calculi; Z79.82 Long term (current) use of aspirin; Z79.52 Long term (current) use of systemic steroids; Z88.1 Allergy status to other antibiotic agents; Z91.012 Allergy to eggs; Z88.0 Allergy status to penicillin; I78.1 Nevus, non-neoplastic
CPT/HCPCS: 36600; 71045; 80048; 82803; 85025; 94640; 96365; 96375; 99285; J0696; J2930; J7050; 36415; 82962; 83735; 94667; 94668; 94762; A9270-GY; J1650; J1815; J2060; J2920; J7030; J7620-GY; S0077

== ENCOUNTER 2018-07-05 18:25 | Emergency (ER) | payer MEDICARE, BC ==
[2018-07-05 19:26] VITALS: BP 129/81
[2018-07-05] MEDS ORDERED: predniSONE 20 MG Tab PO ONE ×2 (19:49→20:06)
[2018-07-05] MEDS ORDERED: Albuterol/Ipratropium 3.0-0.5 MG/3 ML Neb Soln NEB ONE (19:49)
[2018-07-05] MEDS ORDERED: Levofloxacin 500 MG Tab PO ONE (19:50)
--- NOTE | 2018-07-05 20:38 | CRLCR ---
INDICATION: dyspnea 2 View Chest. Findings: The lungs are clear. Pulmonary vascularity, mediastinum and cardiac silhouette are within normal limits. No effusions and no pneumothorax. Osseous structures appear unremarkable. Impression: No evidence of acute cardiopulmonary disease. Dictated by: Uriel Mondragon MD @ 07/05/2018 20:37:52 (Electronically Signed)
--- NOTE | 2018-07-05 21:41 | EDM.PDOC ---
ED HPI GENERAL MEDICAL PROBLEM - General Chief Complaint: Respiratory Problem Stated Complaint: COPD TROUBLE BREATHING Time Seen by Provider: 07/05/18 19:00 Source of Information: Reports: Patient History Limitations: Reports: No Limitations - History of Present Illness INITIAL COMMENTS - FREE TEXT/NARRATIVE: 52-year-old with history of COPD and sarcoidosis presents with concerns of dyspnea. She is on 2 L of home O2 intermittently since hospitalization last month for COPD flare. She presents today after playing more dyspneic both last night and throughout the day today. She has increased cough and feeling that she cannot mobilize secretions. Subjective fever yesterday. No chest pain. She is managed chronically on 10 milligrams of prednisone daily. She just finished a course of Cefuroxime No lower extremity edema. Reports recent normal echo. - Related Data Allergies Allergy/AdvReac Type Severity Reaction Status Date / Time azithromycin [From Zithromax] Allergy Stomach Verified 06/05/18 01:48 Upset ciprofloxacin Allergy Shortness Verified 06/05/18 01:48 of Breath Penicillins Allergy Cannot Verified 06/05/18 01:48 Remember Sulfa (Sulfonamide Allergy Shortness Verified 06/05/18 01:48 Antibiotics) of Breath EGG WHITE Allergy Cannot Uncoded 07/28/16 16:21 Remember Home Meds: Home Meds Albuterol [Ventolin HFA] 2 puff INH Q4H PRN 07/28/16 [History] Fluticasone/Salmeterol [Advair Diskus 500-50] 1 puff INH BID 07/28/16 [History] Umeclidinium [place] [Incruse Ellipta*] 1 puff INH DAILY 07/28/16 [History] Albuterol [Proventil Neb Soln] 3 ml INH Q4H PRN 06/05/18 [History] Albuterol/Ipratropium [DuoNeb 3.0-0.5 MG/3 ML] 1 dose INH Q4H PRN 06/05/18 [ History] Aspirin [[place] Aspirin EC] 1 tab PO DAILY 06/05/18 [History] Cholecalciferol (Vitamin D3) [Vitamin D3] 1,000 units PO BID 06/05/18 [History] Guaifenesin/Pseudoephedrne HCl [Mucinex D ER Tablet] 1 tab PO ASDIRECTED [History] Multivitamin [Daily Multiple Vitamin] 1 tab PO DAILY 06/05/18 [History] Ranitidine HCl [Zantac] 1 tab PO BID 06/05/18 [History] LORazepam 0.5 mg PO Q4H #10 tab 06/08/18 [Rx] Nicotine [Habitrol] 14 mg TRDERM DAILY #28 patch 06/08/18 [Rx] Cefuroxime [Ceftin] 500 mg PO DAILY 07/05/18 [History] Doxycycline [Doxycycline Hyclate] 100 mg PO DAILY 07/05/18 [History] Levofloxacin [Levaquin] 750 mg PO ACBREAKFAST #5 tablet 07/05/18 [Rx] predniSONE [Prednisone] 10 mg PO DAILY 07/05/18 [History] predniSONE [Prednisone] 40 mg PO DAILY 5 Days tablet 07/05/18 [Rx] Past Medical History - Past Health History Medical/Surgical History: Denies Medical/Surgical History Respiratory History: Reports: Asthma, COPD, Sleep Apnea, Other (See Below) Other Respiratory History: CARCOIDOSIS Gastrointestinal History: Reports: GERD Genitourinary History: Reports: Renal Calculus [employer]IDENT[employer] INST[employer]ER History: Reports: Musculoskeletal History: Reports: Fracture, Osteoarthritis, Osteoporosis Neurological History: Reports: Neuropathy, Peripheral Psychiatric History: Reports: Depression - Infectious Disease History Infectious Disease History: Reports: Chicken Pox - Past Surgical History HEENT Surgical History: Reports: Adenoidectomy, Myringotomy w Tube(s), Tonsillectomy GI Surgical History: Reports: Cholecystectomy Female Surgical History: Reports: Lithotripsy/ESWL Social & Family History - Tobacco Use Smoking Status *Q: Former Smoker Used Tobacco, but Quit: Yes Month/Year Tobacco Last Used: - Caffeine Use Caffeine Use: Reports: Soda - Recreational Drug Use Recreational Drug Use: No ED ROS GENERAL - Review of Systems Review Of Systems: See Below Constitutional: Reports: No Symptoms HEENT: Reports: No Symptoms Respiratory: Reports: Shortness of Breath, Cough. Denies: Hemoptysis Cardiovascular: Denies: Chest Pain Endocrine: Reports: No Symptoms GI/Abdominal: Reports: No Symptoms : Reports: No Symptoms Musculoskeletal: Reports: No Symptoms Skin: Reports: No Symptoms Neurological: Reports: No Symptoms Psychiatric: Reports: No Symptoms Hematologic/Lymphatic: Reports: No Symptoms Immunologic: Reports: No Symptoms ED EXAM, GENERAL - Physical Exam Exam: See Below Exam Limited By: No Limitations General Appearance: Alert, WD/WN Ears: Normal External Exam Nose: Normal Inspection Throat/Mouth: Normal Inspection Head: Atraumatic, Normocephalic Neck: Normal Inspection Respiratory/Chest: Wheezing. No: Respiratory Distress Cardiovascular: Regular Rate, Rhythm, No Murmur GI/Abdominal: Soft, Non-Tender Back Exam: Normal Inspection Extremities: Normal Inspection. No: Pedal Edema Neurological: Alert, Oriented Psychiatric: Normal Affect, Normal Mood Skin Exam: Warm, Dry Course - Vital Signs Last Recorded V/S: Last Vital Signs Temp 36.1 C 07/05/18 18:45 Pulse 99 07/05/18 19:22 Resp 16 07/05/18 18:45 BP 129/81 07/05/18 19:22 Pulse Ox 94 L 07/05/18 19:22 - Orders/Labs/Meds Orders: Active Orders 24 hr Category Date Time Status RT Aerosol Therapy [RC] ASDIRECTED Care 07/05/18 19:49 Active Meds: Medications Discontinued Medications Generic Name Dose Route Start Last Admin Trade Name Ashley PRN Reason Stop Dose Admin Albuterol/Ipratropium 3 ml 07/05/18 19:49 07/05/18 20:03 Duoneb 3.0-0.5 Mg/3 Ml NEB 07/05/18 19:50 3 ml ONETIME ONE Administration Levofloxacin 500 mg 07/05/18 19:50 07/05/18 20:08 Levaquin PO 07/05/18 19:51 500 mg ONETIME ONE Administration Prednisone 40 mg 07/05/18 19:49 07/05/18 20:28 Prednisone PO 07/05/18 19:50 Not Given ONETIME ONE Prednisone 20 mg 07/05/18 20:06 07/05/18 20:08 Prednisone PO 07/05/18 20:07 20 mg ONETIME ONE Administration - Re-Assessments/Exams Free Text/Narrative Re-Assessment/Exam: 52-year-old with history of COPD and sarcoidosis presents with concerns of cough , increased secretions, wheezing, and worsening dyspnea. On exam here initially on 2 L of O2, which is her baseline, this was weaned off after administration of a neb. Chest x-ray unremarkable. Presentation seems most consistent with a flare for pulmonary disease rather than cardiac or PE Plan to increase her prednisone to 40 mg for several days, she will follow up with PCP to determine duration next week. Will prescribe a course of Levaquin to give her pseudomonal coverage, acknowledging she was recently on antibiotics. We did review the side effects of fluoroquinolones including tendon rupture. She was able able to ambulate around the ED without supplemental oxygen. She is safe for discharge. She will return to emergency room for worsening symptoms. 07/06/18 00:21 Departure - Departure Time of Disposition: 21:34 Disposition: Home, Self-Care 01 Condition: Good Clinical Impression: COPD with exacerbation - Discharge Information *PRESCRIPTION DRUG MONITORING PROGRAM REVIEWED*: No *COPY OF PRESCRIPTION DRUG MONITORING REPORT IN PATIENT IRIS: No Prescriptions: Levofloxacin [Levaquin] 750 mg PO ACBREAKFAST #5 tablet predniSONE [Prednisone] 40 mg PO DAILY 5 Days tablet Instructions: Chronic Obstructive Pulmonary Disease Exacerbation, [id number] Referrals: Anderson Mullen MD [Primary Care Provider] - Forms: ED Department Discharge Additional Instructions: As discussed, please increase your prednisone dose until you follow up with Dr Mullen to 40 mg daily Take the prescribed antibiotic Please return to the ER if you feel your breathing is worsening - My Orders Last 24 Hours: My Active Orders 07/05/18 19:49 RT Aerosol Therapy [RC] ASDIRECTED - Assessment/Plan Last 24 Hours: My Active Orders 07/05/18 19:49 RT Aerosol Therapy [RC] ASDIRECTED
== END 2018-07-05 21:47 | disposition home or self-care (01) ==
LOC: JP.ED 18:25
DX: J44.1 Chronic obstructive pulmonary disease with (acute) exacerbation (principal); F32.9 Major depressive disorder, single episode, unspecified; Z87.891 Personal history of nicotine dependence; Z88.1 Allergy status to other antibiotic agents; Z88.0 Allergy status to penicillin; Z88.2 Allergy status to sulfonamides; Z79.899 Other long term (current) drug therapy
CPT/HCPCS: 71046; 94640; 99284; A9270; J7620-GY

== ENCOUNTER 2020-08-12 06:25 | Day surgery (SDC) | payer MEDICARE, BC ==
[2020-08-12] MEDS ORDERED: Dextrose 5%-Lactated Ringers 1,000 ML IV SCH (07:00)
[2020-08-12] MEDS ORDERED: Propofol 200 MG/20 ML SDV ONE ×2 (07:11→08:14)
[2020-08-12] MEDS ORDERED: Midazolam 1 MG/ML 2 ML SDV ONE (07:11)
[2020-08-12] MEDS ORDERED: fentaNYL 100 MCG/2 ML SDV ONE (07:11)
[2020-08-12 09:33] VITALS: BP 111/66; PULSE 87
--- NOTE | 2020-08-15 12:48 | OR ---
DATE OF PROCEDURE: 08/12/2020 SURGEON: Bruce Cloud MD PREOPERATIVE DIAGNOSIS: Indication for screening colonoscopy. POSTOPERATIVE DIAGNOSIS: Normal colonoscopic examination. OPERATIVE PROCEDURE: Flexible colonoscopy. ANESTHESIA: IV sedation. INDICATION FOR PROCEDURE: The patient presents for screening colonoscopy. She neither has personal nor family history of colonic neoplasia. The plan is to proceed with colonoscopy with biopsies and/or polypectomy as indicated. Potential risks of the procedure including bleeding and perforation were discussed, and the patient wishes to proceed. DETAIL OF THE PROCEDURE: The patient was taken to the operating room, placed in a left lateral decubitus position. IV sedation was administered, after which the initial digital rectal exam was performed and was unremarkable. Colonoscope was passed into the rectum with retroflexion revealing uncomplicated hemorrhoidal columns. Scope was eventually passed to the level of the cecum. The prep was fairly good with only small liquid stool present to that level. There were no diverticula. No areas of colitis. No polyps or other signs of neoplasia. Scope was then withdrawn and procedure concluded. The patient was taken to the recovery room in satisfactory condition. Given the normal examination today and lack personal or family history of colonic neoplasia, the next colonoscopy should be in 10 years. Bruce Cloud MD /[id number]
== END 2020-08-12 09:34 | disposition home or self-care (01) ==
LOC: JP.SDS 06:25
PROVIDERS: ATTEND Surgery
DX: Z12.11 Encounter for screening for malignant neoplasm of colon (principal); K64.9 Unspecified hemorrhoids; J43.9 Emphysema, unspecified; G47.33 Obstructive sleep apnea (adult) (pediatric); E11.9 Type 2 diabetes mellitus without complications; K21.9 Gastro-esophageal reflux disease without esophagitis
CPT/HCPCS: G0121; J2250; J2704; J3010; J7121

== ENCOUNTER 2022-09-28 06:44 | Day surgery (SDC) | payer MEDICARE, BC ==
[2022-09-28] MEDS ORDERED: Meropenem 500 MG SDV ONE (07:00)
[2022-09-28] MEDS ORDERED: Lidocaine 1% with EPINEPHrine 1:100,000 50 ML MDV ONE (07:00)
[2022-09-28] MEDS ORDERED: Dextrose 5%-Lactated Ringers 1,000 ML IV SCH (07:00)
[2022-09-28] MEDS ORDERED: Bupivacaine 0.5% 50 ML MDV ONE (07:00)
[2022-09-28] MEDS ORDERED: Bacitracin Oint 1 GM U/D Packet ONE (07:00)
[2022-09-28] MEDS ORDERED: fentaNYL 100 MCG/2 ML SDV ONE (07:16)
[2022-09-28] MEDS ORDERED: Midazolam 1 MG/ML 2 ML SDV ONE (07:16)
[2022-09-28] MEDS ORDERED: Propofol 200 MG/20 ML SDV ONE ×4 (07:16→09:23)
[2022-09-28] MEDS ORDERED: Linezolid 600 MG in Premix Bag 1 BAG IV ONE (08:00)
[2022-09-28] MEDS ORDERED: Linezolid 600 MG/300 ML Premix Bag IRR ONE (09:08)
[2022-09-28 10:41] VITALS: BP 124/74; PULSE 79
== END 2022-09-28 10:51 | disposition home or self-care (01) ==
LOC: JP.SDS 06:44
PROVIDERS: ATTEND Surgery
DX: D03.61 Melanoma in situ of right upper limb, including shoulder (principal); J44.9 Chronic obstructive pulmonary disease, unspecified; G47.33 Obstructive sleep apnea (adult) (pediatric); K21.9 Gastro-esophageal reflux disease without esophagitis; F32.A Depression, unspecified; E11.9 Type 2 diabetes mellitus without complications; Z88.0 Allergy status to penicillin; Z88.2 Allergy status to sulfonamides; Z88.1 Allergy status to other antibiotic agents
CPT/HCPCS: 11606; 12034; J2020; J2185; J2250; J2704; J3010; J3490; J7121

== ENCOUNTER 2023-02-06 10:40 | Emergency (ER) | payer MEDICARE, BC ==
[2023-02-06 10:59] VITALS: PULSE 84
[2023-02-06 11:35] LABS: BASOPHILS ABSOLUTE AUTO 0.09 K/uL (0.00-0.10); BASOPHILS PERCENT AUTO 0.7 % (0.1-1.3); EOSINOPHILS ABSOLUTE AUTO 0.22 K/uL (0.00-0.40); EOSINOPHILS PERCENT AUTO 1.7 % (0.0-5.4); HEMATOCRIT 38.2 % (34.3-46.0); HEMOGLOBIN 13.2 g/dL (11.2-15.5); IMMATURE GRAN ABSOLUTE AUTO 0.09 K/uL (0.00-0.23); IMMATURE GRAN PERCENT AUTO 0.7 % (0.0-0.7); LYMPHOCYTES ABSOLUTE AUTO 3.42 K/uL (0.8-3.3); LYMPHOCYTES PERCENT AUTO 26.4 % (11.4-47.7); MEAN CORPUSCULAR HEMOGLOBIN 32.5 pg (31.6-35.5); MEAN CORPUSCULAR HGB CONC 34.6 g/dL (31.6-35.5); MEAN CORPUSCULAR VOLUME 94.1 fL (81.4-99.0); MONOCYTES ABSOLUTE AUTO 1.21 K/uL (0.20-0.90); MONOCYTES PERCENT AUTO 9.3 % (3.3-12.6); NEUTROPHILS ABSOLUTE AUTO 7.92 K/uL (1.0-7.6); NEUTROPHILS PERCENT AUTO 61.2 % (40.0-78.1); PLATELET COUNT,PLT 428 K/uL (130-375); RED BLOOD CELL COUNT 4.06 M/uL (3.77-5.24)
[2023-02-06 11:54] LABS: PROTHROMBIN TIME 10.5 sec (9.2-10.6)
[2023-02-06 11:58] LABS: CALCIUM 8.5 mg/dL (8.5-10.1); EST CRCL DRUG DOSING (CG) 54.51 mL/min; POTASSIUM,K 3.3 mmol/L (3.6-5.2)
[2023-02-06 11:59] LABS: ANION GAP 14.3 mmol/L (5.0-14.0)
[2023-02-06] MEDS: Potassium Chloride 20 MEQ Tab.ER PO ONE (12:21)
[2023-02-06 12:23] VITALS: BP 126/68
== END 2023-02-06 12:33 | disposition home or self-care (01) ==
LOC: JP.ED 10:40
DX: I25.10 Atherosclerotic heart disease of native coronary artery without angina pectoris (principal); D86.0 Sarcoidosis of lung; J44.9 Chronic obstructive pulmonary disease, unspecified; E11.9 Type 2 diabetes mellitus without complications; K21.9 Gastro-esophageal reflux disease without esophagitis; Z95.5 Presence of coronary angioplasty implant and graft; Z86.16 Personal history of COVID-19; Z79.01 Long term (current) use of anticoagulants; Z79.84 Long term (current) use of oral hypoglycemic drugs; Z79.899 Other long term (current) drug therapy; Z88.2 Allergy status to sulfonamides; Z91.012 Allergy to eggs; Z88.0 Allergy status to penicillin; Z88.1 Allergy status to other antibiotic agents
CPT/HCPCS: 36415; 71045; 80048; 84484; 85025; 85610; 85730; 99285; A9270

== ENCOUNTER 2024-10-07 11:34 | Emergency (ER) | payer MEDICARE, BC ==
[2024-10-07 12:53] LABS: BASOPHILS ABSOLUTE AUTO 0.16 K/uL (0.00-0.10); BASOPHILS PERCENT AUTO 0.8 % (0.1-1.3); EOSINOPHILS ABSOLUTE AUTO 0.41 K/uL (0.00-0.40); EOSINOPHILS PERCENT AUTO 2.2 % (0.0-5.4); HEMATOCRIT 37.4 % (34.3-46.0); HEMOGLOBIN 12.2 g/dL (11.2-15.5); IMMATURE GRAN ABSOLUTE AUTO 0.28 K/uL (0.00-0.23); IMMATURE GRAN PERCENT AUTO 1.5 % (0.0-0.7); LYMPHOCYTES ABSOLUTE AUTO 2.89 K/uL (0.8-3.3); LYMPHOCYTES PERCENT AUTO 15.3 % (11.4-47.7); MEAN CORPUSCULAR HEMOGLOBIN 31.2 pg (31.6-35.5); MEAN CORPUSCULAR HGB CONC 32.6 g/dL (31.6-35.5); MEAN CORPUSCULAR VOLUME 95.7 fL (81.4-99.0); MONOCYTES ABSOLUTE AUTO 1.43 K/uL (0.20-0.90); MONOCYTES PERCENT AUTO 7.6 % (3.3-12.6); NEUTROPHILS ABSOLUTE AUTO 13.71 K/uL (1.0-7.6); NEUTROPHILS PERCENT AUTO 72.6 % (40.0-78.1); PLATELET COUNT,PLT 466 K/uL (130-375); RED BLOOD CELL COUNT 3.91 M/uL (3.77-5.24); WHITE BLOOD CELL COUNT,WBC 18.9 K/uL (3.2-11.0)
[2024-10-07] MEDS: Albuterol/Ipratropium 3.0-0.5 MG/3 ML Neb Soln NEB ONE (12:54)
[2024-10-07 13:11] LABS: A/G RATIO 1.1 (1.2-2.2); ALANINE AMINOTRANSFERASE,ALT 27 U/L (12-78); ALBUMIN 3.5 g/dL (3.4-5.0); ALKALINE PHOSPHATASE 63 U/L (46-116); ASPARTATE AMNIOTRANSFERASE,AST 11 U/L (15-37); BILIRUBIN TOTAL 1.2 mg/dL (0.2-1.0); BLOOD UREA NITROGEN,BUN 10 mg/dL (7-18); CALCIUM 8.3 mg/dL (8.5-10.1); CARBON DIOXIDE,CO2 28 mmol/L (21-32); CHLORIDE,CL 102 mmol/L (100-108); CREATININE 0.9 mg/dL (0.6-1.0); EST CRCL DRUG DOSING (CG) 61.02 mL/min; ESTIMATED GFR 73 mL/min (>60); GLUCOSE RANDOM 148 mg/dL (74-106); POTASSIUM,K 3.7 mmol/L (3.6-5.2); PRO B-TYPE NATRIUR PEPT,BNPPRO 77 pg/mL (5-125); PROTEIN TOTAL,TP 6.7 g/dL (6.4-8.2); SODIUM,NA 138 mmol/L (140-148)
[2024-10-07 13:12] LABS: ANION GAP 11.7 mmol/L (5.0-14.0); C-REACTIVE PROTEIN < 0.50 mg/dL (<0.50); TROPONIN I HIGH SENSITIVITY < 4.0 pg/mL (<=60.3)
[2024-10-07] MEDS: LORazepam 0.5 MG Tab PO ONE (14:13)
[2024-10-07] MEDS: Levalbuterol HCl 1.25 MG/3 ML Neb NEB ONE (15:03)
[2024-10-07 15:14] LABS: BASE EXCESS VENOUS 0.4 mm/L; BICARBONATE,VENOUS 24.1 mmol/L; CARBOXYHEMOGLOBIN < 0.5 % (0.0-1.6); METHEMOGLOBIN 0.7 %; O2 SATURATION VENOUS 78.6; OXYHEMOGLOBIN 77.9 %; PCO2 VENOUS 37.7 mm/Hg; PH,VENOUS 7.422 (7.350-7.450); PO2 VENOUS 46.6 mm/Hg
[2024-10-07 15:32] VITALS: BP 113/68; PULSE 99
[2024-10-07] MEDS: methylPREDNISolone Sodium Succinate 125 MG/2 ML SDV IM ONE (15:55)
[2024-10-07] MEDS: Levofloxacin 250 MG Tab PO ONE (16:04)
[2024-10-07] MEDS: Acetaminophen 500 MG Tab PO ONE (16:13)
== END 2024-10-07 16:50 | disposition home or self-care (01) ==
LOC: JP.ED 11:34
DX: J44.1 Chronic obstructive pulmonary disease with (acute) exacerbation (principal); I50.9 Heart failure, unspecified; E78.00 Pure hypercholesterolemia, unspecified; K21.9 Gastro-esophageal reflux disease without esophagitis; E11.9 Type 2 diabetes mellitus without complications; Z95.5 Presence of coronary angioplasty implant and graft; Z90.49 Acquired absence of other specified parts of digestive tract; Z91.012 Allergy to eggs; Z88.0 Allergy status to penicillin; Z88.1 Allergy status to other antibiotic agents; Z88.2 Allergy status to sulfonamides; Z79.899 Other long term (current) drug therapy; Z79.84 Long term (current) use of oral hypoglycemic drugs; Z79.01 Long term (current) use of anticoagulants; Z79.85 Long-term (current) use of injectable non-insulin antidiabetic drugs
CPT/HCPCS: 36415; 71250; 80053; 82803; 83605; 83880; 84484; 85025; 85379; 86140; 93005; 94640; 96372; 99285; A9270; J2919; J7612

== ENCOUNTER 2024-10-14 10:37 | Emergency (ER) | payer MEDICARE, BC ==
[2024-10-14 10:58] LABS: HEMATOCRIT 44.2 % (34.3-46.0); HEMOGLOBIN 14.7 g/dL (11.2-15.5); MEAN CORPUSCULAR HEMOGLOBIN 31.1 pg (31.6-35.5); MEAN CORPUSCULAR HGB CONC 33.3 g/dL (31.6-35.5); MEAN CORPUSCULAR VOLUME 93.4 fL (81.4-99.0); PLATELET COUNT,PLT 488 K/uL (130-375); RED BLOOD CELL COUNT 4.73 M/uL (3.77-5.24)
[2024-10-14] MEDS ORDERED: Metoprolol Tartrate 5 MG in Sodium Chloride 0.9% 50 ML IV ONE (11:07)
[2024-10-14 11:14] LABS: PROTHROMBIN TIME 10.5 sec (9.2-10.6)
[2024-10-14] MEDS: Sodium Chloride 0.9% 1,000 ML IV SCH (11:15)
[2024-10-14] MEDS ORDERED: Propofol 200 MG/20 ML SDV ONE (11:17)
[2024-10-14 11:26] LABS: LYMPHOCYTES ABSOLUTE MAN 7.29 K/uL (0.8-3.3); LYMPHOCYTES PERCENT MAN 27 % (24-44); METAMYELOCYTE ABSOLUTE MAN 2.16 K/uL; METAMYELOCYTE PERCENT MAN 8 %; MONOCYTES ABSOLUTE MAN 0.81 K/uL (0.20-0.90); MONOCYTES PERCENT MAN 3 % (2-6); NEUTROPHILS ABSOLUTE MAN 16.74 K/uL (1.0-7.6); SEG NEUTROPHILS PERCENT MAN 62 % (36-66)
[2024-10-14 11:29] LABS: ALANINE AMINOTRANSFERASE,ALT 26 U/L (12-78); ALBUMIN 3.4 g/dL (3.4-5.0); ALKALINE PHOSPHATASE 61 U/L (46-116); ASPARTATE AMNIOTRANSFERASE,AST 10 U/L (15-37); BILIRUBIN TOTAL 0.9 mg/dL (0.2-1.0); BLOOD UREA NITROGEN,BUN 20 mg/dL (7-18); CALCIUM 9.3 mg/dL (8.5-10.1); CARBON DIOXIDE,CO2 25 mmol/L (21-32); CHLORIDE,CL 98 mmol/L (100-108); CREATININE 1.2 mg/dL (0.6-1.0); ESTIMATED GFR 52 mL/min (>60); GLUCOSE RANDOM 147 mg/dL (74-106); MAGNESIUM 1.9 mg/dL (1.8-2.4); POTASSIUM,K 3.7 mmol/L (3.6-5.2); PRO B-TYPE NATRIUR PEPT,BNPPRO 1414 pg/mL (5-125); PROTEIN TOTAL,TP 6.8 g/dL (6.4-8.2); SODIUM,NA 138 mmol/L (140-148); TROPONIN I HIGH SENSITIVITY 6.3 pg/mL (<=60.3)
[2024-10-14 11:30] LABS: ANION GAP 18.7 mmol/L (5.0-14.0)
[2024-10-14] MEDS: Metoprolol Tartrate 5 MG/5 ML SDV IV ONE (11:49)
[2024-10-14] MEDS: Digoxin 500 MCG/2 ML Amp IVPUSH ONE (12:45)
[2024-10-14 12:51] VITALS: BP 96/38; PULSE 86
[2024-10-14] MEDS: Sodium Chloride 0.9% 500 ML IV ONE (12:55)
[2024-10-14] MEDS: Midazolam 1 MG/ML 2 ML SDV IVPUSH ONE (12:56)
== END 2024-10-14 13:09 ==
LOC: JP.ED 10:37
DX: I48.91 Unspecified atrial fibrillation (principal); I95.9 Hypotension, unspecified; I50.9 Heart failure, unspecified; E78.00 Pure hypercholesterolemia, unspecified; J44.9 Chronic obstructive pulmonary disease, unspecified; E11.9 Type 2 diabetes mellitus without complications; Z86.16 Personal history of COVID-19; Z90.49 Acquired absence of other specified parts of digestive tract; Z79.84 Long term (current) use of oral hypoglycemic drugs; Z79.82 Long term (current) use of aspirin; Z88.0 Allergy status to penicillin; Z88.2 Allergy status to sulfonamides; Z91.012 Allergy to eggs; Z88.1 Allergy status to other antibiotic agents
CPT/HCPCS: 00410-QZ; 36415; 71045; 71045-26; 80053; 82947; 83605; 83735; 83880; 84443; 84484; 85025; 85610; 93005; 93010; 96361; 96374; 96375; 99285; 99285-25; J1160; J2704; J3490; J7030